=== PATIENT | male | born 1985 | race Caucasian/White ===

== ENCOUNTER 2016-10-20 09:31 | Emergency (ER) | payer OTHER ==
[2016-10-20 09:37] VITALS: BP 134/84
--- NOTE | 2016-10-20 09:57 | UC ---
Throat Pain/Nasal Manjit HPI - HPI Summary HPI Summary: ONSET OF ST AND PAIN WITH SWALLOWING YESTERDAY. HAS CHILLS AND BODY ACHES AND MILD COUGH. HAS H/O CF. - History of Current Complaint Chief Complaint: UCGeneralIllness Stated Complaint: THROAT PAIN Time Seen by Provider: 10/20/16 09:45 Hx Obtained From: Patient Onset/Duration: Gradual Onset, Lasting Hours, Still Present Severity: Moderate Pain Intensity: 8 Pain Scale Used: 0-10 Numeric Cough: Nonproductive Associated Signs & Symptoms: Positive: Nasal Discharge. Negative: Wheezing, Fever, Vomiting, Rash - Allergies/Home Medications Allergies/Adverse Reactions: Allergies Allergy/AdvReac Type Severity Reaction Status Date / Time Cefaclor [From [facility]] Allergy Intermediate Rash Verified 10/20/16 09:37 PUMPKIN SEEDS Allergy Severe Hives Uncoded 10/20/16 09:37 Home Medications: Home Medications Multiple Vitamins W/ Minerals [Multivitamin] 1 tab PO DAILY 10/20/16 [History Confirmed 10/20/16] Orkambi 1 tab PO BID 10/20/16 [History Confirmed 10/20/16] Pancrelipase (Lipase-Protease- [Creon 6000 Unit] 6 cap PO SEE INSTRUCTIONS 10/20 [History Confirmed 10/20/16] PMH/Surg Hx/FS Hx/Imm Hx Other Respiratory History: CYSTIC FIBROSIS - Surgical History Surgical History: None - Family History Known Family History: Positive: Hypertension - Social History Alcohol Use: None Substance Use Type: None Smoking Status (MU): Never Smoked Tobacco Review of Systems Constitutional: Chills ENT: Sore Throat, Nasal Discharge Respiratory: Cough Cardiovascular: Negative Gastrointestinal: Negative Musculoskeletal: Myalgia All Other Systems Reviewed And Are Negative: Yes Physical Exam Triage Information Reviewed: Yes Appearance: Well-Appearing, No Pain Distress, Well-Nourished Vital Signs: Initial Vital Signs Temp 98.7 F 10/20/16 09:32 Pulse 71 10/20/16 09:32 Resp 14 10/20/16 09:32 BP 134/84 10/20/16 09:32 Pulse Ox 100 10/20/16 09:32 Vital Signs Reviewed: Yes Eyes: Positive: Conjunctiva Clear ENT: Positive: Hearing grossly normal, Pharynx normal, TMs normal Neck: Positive: Supple, Nontender, No Lymphadenopathy Respiratory Exam: Normal Cardiovascular Exam: Normal Abdomen Description: Positive: Soft Musculoskeletal: Positive: No Edema Neurological: Positive: Alert Psychological: Positive: Age Appropriate Behavior Skin: Negative: rashes Throat Pain/Nasal Course/Dx - Differential Dx/Diagnosis Provider Diagnoses: ACUTE PHARYNGITIS Discharge - Discharge Plan Condition: Stable Disposition: HOME Prescriptions: Amoxicillin PO (*) [Amoxicillin 500 MG CAP*] 1,000 mg PO Q12H #40 cap Patient Education Materials: Pharyngitis (ED) Forms: *Work Release Referrals: Daya GALDAMEZ,Heath Melton [Primary Care Provider] - If Needed Additional Instructions: GIVEN YOUR CF AND RELATIVE DECREASED ABILITY TO FIGHT INFECTION WILL COVER WITH ANTIBIOTICS. TAKE FOR THE FULL 10 DAYS. FOLLOW-UP WITH YOUR PCP IF YOU ARE NOT IMPROVING EXPECTED.
== END 2016-10-20 10:09 | disposition home or self-care (01) ==
LOC: UCEAST 09:31
DX: J02.9 Acute pharyngitis, unspecified (principal); E84.9 Cystic fibrosis, unspecified
CPT/HCPCS: 99212; G0463

== ENCOUNTER 2016-10-27 11:31 | Emergency (ER) | payer OTHER ==
[2016-10-27 11:49] VITALS: BP 135/89
[2016-10-27] MEDS ORDERED: predniSONE TAB* 20 MG PO ONE (12:13)
[2016-10-27] MEDS ORDERED: Albuterol 2.5 MG/3 ML NEB.SOL* (0.083%) INH ONE (12:14)
--- NOTE | 2016-10-27 12:21 | UC ---
Respiratory Complaint HPI - HPI Summary HPI Summary: 31 y/o male PMHX of cistic fibrosis presents to the urgent care c/o SOB, persistent cough for the past week. Pt reports he was seen here at the urgent care on 10/20/2016 and was Rx Amoxicillin Po. He has been taking ABX. However this morning he was coughing persistently and has a hard time breathing and almost passed out at work. Pt states his symptoms has resolved now. 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 His cough has been productive w/ green sputum. Pt denies fever,chest pain or SOB. now, fever, N/V/D. - History of Current Complaint Chief Complaint: UCRespiratory Stated Complaint: COUGH SOB Time Seen by Provider: 10/27/16 12:02 Hx Obtained From: Patient Onset/Duration: Gradual Onset, Lasting Days, Still Present Severity Initially: Mild Severity Currently: Moderate Pain Intensity: 0 Pain Scale Used: 0-10 Numeric Character: Cough: Nonproductive - green phlegm Aggravating Factors: Exertion, Deep Breaths Associated Signs And Symptoms: Positive: Dyspnea, Pleuritic Chest Pain, Nasal Congestion, Sinus Discomfort. Negative: Fever Related History: Seasonal Allergies - Risk Factors Pulmonary Embolism Risk Factors: Negative Cardiac Risk Factors: Negative Pseudomonas Risk Factors: Negative Tuberculosis Risk Factors: Negative - Allergies/Home Medications Allergies/Adverse Reactions: Allergies Allergy/AdvReac Type Severity Reaction Status Date / Time Cefaclor [From [facility]] Allergy Intermediate Rash Verified 10/27/16 11:49 PUMPKIN SEEDS Allergy Severe Hives Uncoded 10/27/16 11:49 PMH/Surg Hx/FS Hx/Imm Hx Previously Healthy: Yes Other Respiratory History: Cistic fibrosis - Surgical History Surgical History: None - Family History Known Family History: Positive: Hypertension - Social History Occupation: Employed Full-time Lives: With Family Alcohol Use: None Substance Use Type: None Smoking Status (MU): Never Smoked Tobacco Review of Systems Constitutional: Negative Skin: Negative Eyes: Negative ENT: Sore Throat, Nasal Discharge, Sinus Congestion Respiratory: Cough - productive Cardiovascular: Negative Gastrointestinal: Negative Genitourinary: Negative Motor: Negative Neurovascular: Negative Musculoskeletal: Negative Neurological: Negative Psychological: Negative All Other Systems Reviewed And Are Negative: Yes Physical Exam Triage Information Reviewed: Yes Appearance: Well-Appearing, No Pain Distress, Well-Nourished Vital Signs: Initial Vital Signs Temp 97.9 F 10/27/16 11:45 Pulse 66 10/27/16 11:45 Resp 16 10/27/16 11:45 BP 135/89 10/27/16 11:45 Pulse Ox 100 10/27/16 11:45 Vital Signs Reviewed: Yes Eye Exam: Normal Eyes: Positive: Conjunctiva Clear - PERRLA, EOMI, fundi grossly normal ENT Exam: Normal ENT: Positive: Normal ENT inspection, Hearing grossly normal, Pharynx normal, TMs normal Dental Exam: Normal Neck exam: Normal Neck: Positive: Supple, Nontender, No Lymphadenopathy Respiratory Exam: Normal Respiratory: Positive: Chest non-tender, Lungs clear, Normal breath sounds - Positive wheezing on the anterior right lung, Wheezing Cardiovascular Exam: Normal Cardiovascular: Positive: RRR, No Murmur, Pulses Normal, Brisk Capillary Refill Abdominal Exam: Normal Abdomen Description: Positive: Nontender, No Organomegaly, Soft. Negative: CVA Tenderness (R), CVA Tenderness (L) Bowel Sounds: Positive: Present Musculoskeletal Exam: Normal Musculoskeletal: Positive: Strength Intact, ROM Intact, No Edema Neurological Exam: Normal Psychological Exam: Normal Skin Exam: Normal UC Diagnostic Evaluation - Laboratory O2 Sat by Pulse Oximetry: 100 Respiratory Course/Dx - Course Course Of Treatment: 31 y/o male PMHX of cistic fibrosis presents to the urgent care c/o SOB, persistent cough for the past week. Pt reports he was seen here at the urgent care on 10/20/2016 and was Rx Amoxicillin Po. He has been taking ABX. However this morning he was coughing persistently and has a hard time breathing and almost passed out at work. Pt states his symptoms has resolved now. 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 His cough has been productive w/ green sputum. Pt denies fever,chest pain or SOB. now, fever, N/V/ D. Hx obtained. PE abnormal findings:Respiratory: Positive: Chest non-tender, Lungs clear, Normal breath sounds - Positive wheezing on the anterior right lung. Pt O2Sat: 100. Pt given albuterol nebulizer treatment and Prednisone 60mgPO at the clinic. Pt felt better after treatment. Pt Rx prednisone taper dose and advised to continue w/ nebulizing treatment at home to alleviate symptoms of Wheezing and SOB and to continue w/ Amoxicillin PO full treatment. Advised to f/u with his Pulmonology appt tomorrow for furhter evaluation and treatment on his Cistic Fibrosis. Pt understood and agreed and left the clinic ambulating. - Differential Dx/Diagnosis Differential Diagnosis/HQI/PQRI: Asthma, Bronchitis, Exacerbation Of COPD, Laryngitis, Lower Resp Infection, Sinusitis, Other - Cistic fibrosis Provider Diagnoses: 1- Acute bronchitis Discharge - Discharge Plan Condition: Stable Disposition: HOME Prescriptions: Albuterol 2.5MG/3ML (0.083%)* [Ventolin 2.5 MG/3 ML NEB.CONSTANZA*] 2.5 mg INH Q4H #1 isabelle predniSONE TAB* [Deltasone TAB*] 20 mg PO DAILY #8 tab Patient Education Materials: Upper Respiratory Infection (ED) Referrals: Daya GALDAMEZ,Heath Melton [Primary Care Provider] - 1 Day Additional Instructions: 1- Please continue taking Amoxicillin, and take the predispose tomorrow since you were given 1st dose today. Continue the albuterol nebulizer treatments q4- 6hrs prn. F/u with your Motor Vehicle Technician for further evaluation and treatment. Increase fluid intake and rest.
== END 2016-10-27 13:01 | disposition home or self-care (01) ==
LOC: UCEAST 11:31
DX: J20.9 Acute bronchitis, unspecified (principal); R09.81 Nasal congestion; E84.9 Cystic fibrosis, unspecified
CPT/HCPCS: 99212; G0463; J7512

== ENCOUNTER 2017-04-23 17:25 | Emergency (ER) | payer OTHER ==
[2017-04-23 17:34] VITALS: BP 140/97
--- NOTE | 2017-04-23 18:01 | UC ---
FLU HPI - HPI Summary HPI Summary: 32 y/o male PMHX of cystic fibrosis presents to the urgent care c/o fever, nausea, body aches since yesterday. Pt reports this morning he woke up with periumbilical pressure and pain. He has decrease appetite and nausea. he had a soft BM this morning. He took 2 Tylenols around 1700 for fever. Pain is pressure like 4/10 radiating to the RLQ. Pt states he had similar symptoms 2 years ago and was Dx with appendicitis and Rx ABX and symptoms resolved. Pt denies SOB, chest pain, V/D or urinary symptoms or lower back pain, constipation , blood in the stool. - History of Current Complaint Chief Complaint: UCGeneralIllness Stated Complaint: FEVER, AND NAUSEA Time Seen by Provider: 04/23/17 17:49 Hx Obtained From: Patient Onset/Duration: Gradual Onset, Lasting Days - 1 day, Still Present, Worse Since - today Severity Currently: Moderate Severity Initially: Mild Pain Intensity: 4 Pain Scale Used: 0-10 Numeric Associated Signs & Symptoms: Positive: Fever, Myalgia - Risk Factors Influenza Risk Factors: Negative - Allergy/Home Medications Allergies/Adverse Reactions: Allergies Allergy/AdvReac Type Severity Reaction Status Date / Time Cefaclor [From [facility]] Allergy Intermediate Rash Verified 04/23/17 17:33 PUMPKIN SEEDS Allergy Severe Hives Uncoded 04/23/17 17:33 Home Medications: Home Medications Albuterol 2.5MG/3ML (0.083%)* [Ventolin 2.5 MG/3 ML NEB.CONSTANZA*] 2.5 mg INH Q4H PRN 04/23/17 [History Confirmed 04/23/17] Cholecalciferol [Vitamin D] 1,000 unit PO DAILY 04/23/17 [History Confirmed ] PMH/Surg Hx/FS Hx/Imm Hx Previously Healthy: Yes Other GI/ History: Cystic Fibrosis - Surgical History Surgical History: None - Family History Known Family History: Positive: Hypertension - Social History Occupation: Employed Full-time Lives: With Family Alcohol Use: None Substance Use Type: None Smoking Status (MU): Never Smoked Tobacco Review of Systems Constitutional: Fever, Chills Skin: Negative Eyes: Negative ENT: Negative, Nasal Discharge Respiratory: Negative Cardiovascular: Negative Gastrointestinal: Abdominal Pain - periumbilical area, RLQ pain and pressure, Nausea Genitourinary: Negative Motor: Negative Neurovascular: Negative Musculoskeletal: Negative Neurological: Negative Psychological: Negative Is Patient Immunocompromised?: No All Other Systems Reviewed And Are Negative: Yes Physical Exam Triage Information Reviewed: Yes Vital Signs: Initial Vital Signs Temp 100.1 F 04/23/17 17:30 Pulse 104 04/23/17 17:30 Resp 16 04/23/17 17:30 BP 140/97 04/23/17 17:30 Pulse Ox 100 04/23/17 17:30 - Additional Comments VITAL SIGNS: Reviewed. GENERAL: Patient is a well developed and nourished male who is lying comfortable in the examining table. Patient is not in any acute respiratory distress. HEAD AND FACE: Normocephalic and atraumatic. EYES: PERRLA, EOMI x 2, No injected conjunctiva. EARS: Hearing grossly intact. Ear canals and tympanic membranes are WNL. MOUTH: Oropharynx within normal limits. NECK: Supple, trachea is midline, no adenopathy, no JVD. CHEST: Symmetric, no tenderness at palpation LUNGS: Clear to auscultation bilaterally. No wheezing or crackles. CVS: RRR,, S1 and S2 present, no murmurs or gallops appreciated. ABDOMEN: Abd: Flat with no distention. No surface trauma, scars, incisions. normal bowel sounds present in all four quadrants. Point tenderness to palpation around the pperiumbilical area and RLQ, No , guarding, or rigidity to palpation. No masses palpated, no pulsation in epigastric area. No organomegaly. Negative [place] signs. No tenderness over McBurneys point. Good femoral pulses bilaterally. No hernia noted. No CVAT bilaterally EXTREMITIES: FROM in all major joints, no edema, no cyanosis or clubbing. NEURO: Alert and oriented x 3. No acute neurological deficits. Speech is normal. SKIN: Dry and warm Flu Course/Dx - Course Course Of Treatment: 32 y/o male PMHX of cystic fibrosis presents to the urgent care c/o fever, nausea, body aches since yesterday. Pt reports this morning he woke up with periumbilical pressure and pain. He has decrease appetite and nausea. he had a soft BM this morning. He took 2 Tylenols around 1700 for fever.. Pain is pressure like 4/10 radiating to the RLQ. Pt states he had similar symptoms 2 years ago and was Dx with appendicitis and Rx ABX and symptoms resolved. Pt denies SOB, chest pain, V/D or urinary symptoms or lower back pain, constipation, or blood in the stool.. Hx obtained. Pt is febrile and tachychardic with RLQ abdomen with tenderness on palpation on examination. Influenza A&B ordered : result: negative. I counsulted DR Rico on Pt's symptoms. She recommended Pt should go to the ER for further management and treatment. I advised the PT to go to the ER by ambulance and he stated he will go by Private car. Pt advised the risk of not going to the ER. I spoke to DR Berrios in the [facility] ER and DR Berrios agreed to accept PT. Pt left the clinic hemodynamycally stable, A&OX3 - Differential Dx/Diagnosis Differential Diagnosis/HQI/PQRI: Bronchitis, Influenza, Upper Respiratory Infection, Other - appendicitis, renal colic, bowel obstruction, constipation, colitis Provider Diagnoses: 1- Acute RLQ abdominal pain. 2-fever. 3-Elevated BP w/o Hx of HTN Discharge - Discharge Plan Condition: Stable Disposition: OTHER Discharge Disposition Comment: Pt highly recommended to go to [facility] ER for further treatment Patient Education Materials: Fever in Adults (ED), Acute Abdominal Pain (ED) Referrals: Daya GALDAMEZ,Heath Melton [Primary Care Provider] - Additional Instructions: I think you need a higher level or care for your presenting symptoms. I highly recommend you to go to the ER for further evaluation and treatment. The risks of not going can be , sepsis, appendicitis, perforation etc. I spoke to the ER attending Dr Berrios. . They are expecting you.
== END 2017-04-23 18:38 ==
LOC: UCEAST 17:25
DX: R10.31 Right lower quadrant pain (principal); R50.9 Fever, unspecified; R03.0 Elevated blood-pressure reading, without diagnosis of hypertension; E84.9 Cystic fibrosis, unspecified
CPT/HCPCS: 87502; 99212; G0463

== ENCOUNTER 2018-05-11 07:34 | Emergency (ER) | payer OTHER ==
[2018-05-11 07:46] VITALS: BP 140/84
[2018-05-11 08:04] LABS: Influenza A Molecular POSITIVE (Negative)
--- NOTE | 2018-05-11 08:22 | UC ---
FLU HPI - HPI Summary HPI Summary: 2 days of cough, congestion, chest heaviness, body aches, headache, nausea. Has subjective fever and chills. He got a flu shot last week. Has a history of cystic fibrosis and reports he has been wheezing. - History of Current Complaint Chief Complaint: UCRespiratory Stated Complaint: FLU LIKE SYM Time Seen by Provider: 05/11/18 07:46 Hx Obtained From: Patient Onset/Duration: Gradual Onset, Lasting Days, Still Present Severity Currently: Moderate Severity Initially: Moderate Pain Intensity: 7 Pain Scale Used: 0-10 Numeric Associated Signs & Symptoms: Positive: Fever, Myalgia, Cough, Nasal Congestion, Headache - Allergy/Home Medications Allergies/Adverse Reactions: Allergies Allergy/AdvReac Type Severity Reaction Status Date / Time cefaclor [From [facility]] Allergy Rash Verified 05/11/18 07:46 PUMPKIN SEEDS Allergy Severe Hives Uncoded 05/11/18 07:46 Home Medications: Home Medications Azithromycin 250 mg PO 05/11/18 [History] Ibuprofen 400 mg PO 05/11/18 [History] PMH/Surg Hx/FS Hx/Imm Hx Other Respiratory History: CYSTIC FIBROSIS - Surgical History Surgical History: None - Family History Known Family History: Positive: Hypertension - Social History Alcohol Use: None Substance Use Type: None Smoking Status (MU): Never Smoked Tobacco Review of Systems All Other Systems Reviewed And Are Negative: Yes Constitutional: Positive: Fever, Chills, Fatigue ENT: Positive: Nasal Discharge Respiratory: Positive: Shortness Of Breath, Cough, Other - WHEEZE Cardiovascular: Positive: Negative Gastrointestinal: Positive: Nausea Musculoskeletal: Positive: Arthralgia, Myalgia Neurological: Positive: Headache Physical Exam Triage Information Reviewed: Yes Appearance: No Pain Distress, Well-Nourished, Ill-Appearing - MILD Vital Signs: Initial Vital Signs Temp 99.5 F 05/11/18 07:43 Pulse 107 05/11/18 07:43 Resp 18 05/11/18 07:43 BP 140/84 05/11/18 07:43 Pulse Ox 97 05/11/18 07:43 Laboratory Tests 05/11/18 08:00 Influenza A (Rapid) Positive A Vital Signs Reviewed: Yes Eyes: Positive: Conjunctiva Clear ENT: Positive: Hearing grossly normal, Pharynx normal, TMs normal Neck: Positive: Supple, Nontender, No Lymphadenopathy Respiratory Exam: Normal Cardiovascular: Positive: Tachycardia Abdomen Description: Positive: Soft Musculoskeletal: Positive: No Edema Neurological: Positive: Alert Psychological: Positive: Age Appropriate Behavior Skin: Negative: Rashes Flu Course/Dx - Course Course Of Treatment: PATIENT WITH POSITIVE INFLUENZA A. TAMIFLU TWICE DAILY FOR 5 DAYS. OTC MEDS NEEDED FOR SYMPTOM RELIEF. PATIENT HAS A HISTORY OF CYSTIC FIBROSIS AND TAKES AZITHROMYCIN 250 MG DAILY. HE WILL CALL HIS CF TEAM IN [place] TO DISCUSS IF ANY FURTHER MEDICATIONS ARE REQUIRED SUCH ANTIBIOTIC PROPHYLAXIS. - Differential Dx/Diagnosis Provider Diagnosis: Influenza A Discharge - Sign-Out/Discharge Documenting (check all that apply): Patient Departure All imaging exams completed and their final reports reviewed: No Studies - Discharge Plan Condition: Stable Disposition: HOME Prescriptions: Oseltamivir CAP* [Tamiflu CAP*] 75 mg PO BID #10 cap Patient Education Materials: Influenza (ED) Forms: *Work Release Referrals: Daya GALDAMEZ,Heath Melton [Medical Doctor] - 1 Week Additional Instructions: SWAB POSITIVE FOR INFLUENZA A. TAMIFLU TWICE DAILY FOR 5 DAYS. OTC MEDS NEEDED FOR FEVER, BODY ACHES. STAY WELL HYDRATED AND RESTED. SEEK FOLLOW-UP IF YOU ARE NOT IMPROVING EXPECTED. USE OTC AFRIN FOR NASAL CONGESTION. 2 SPRAYS IN EACH NOSTRIL TWICE DAILY NEEDED. DO NOT USE FOR MORE THAN 3-4 DAYS IN A ROW TO PREVENT DEVELOPING REBOUND CONGESTION. BE [facility]RE [facility] TO ENSURE THERE ARE NO FURTHER STEPS YOU NEED TO TAKE TO PROTECT YOUR LUNGS. - Billing Disposition and Condition Condition: STABLE Disposition: Home
== END 2018-05-11 08:41 | disposition home or self-care (01) ==
LOC: UCEAST 07:34
DX: J10.1 Influenza due to other identified influenza virus with other respiratory manifestations (principal); Z88.1 Allergy status to other antibiotic agents; Z91.018 Allergy to other foods
CPT/HCPCS: 99212; G0463

== ENCOUNTER 2018-08-26 11:50 | Emergency (ER) | payer OTHER ==
[2018-08-26 11:59] VITALS: BP 129/85
--- NOTE | 2018-08-26 12:16 | UC ---
Upper Extremity HPI - HPI Summary HPI Summary: 33 year old male with no PMH no medications, fmh non-contributory presents with small mass on right wrist. Unknown amount of time present, began hurting today , no prior occurrences. He skateboards and snowboards and has a history of multiple wrist injuries in the past, but none presently, no injuries or falls recently. no bruising no other sytmpoms. - History of Current Complaint Chief Complaint: UCUpperExtremity Stated Complaint: WRIST INJURY Time Seen by Provider: 08/26/18 11:58 Hx Obtained From: Patient ?: No Onset/Duration: Sudden Onset, Lasting Days Severity Initially: Moderate Severity Currently: Moderate Pain Intensity: 7 Pain Scale Used: 0-10 Numeric Location Of Pain: Is Discrete @ - mass on inner right wrist Character: Sharp Aggravating Factor(s): Movement, Other - touching Alleviating Factor(s): Nothing Associated Signs And Symptoms: Positive: Swelling - Allergies/Home Medications Allergies/Adverse Reactions: Allergies Allergy/AdvReac Type Severity Reaction Status Date / Time cefaclor [From [facility]] Allergy Rash Verified 08/26/18 11:58 PUMPKIN SEEDS Allergy Severe Hives Uncoded 08/26/18 11:58 PMH/Surg Hx/FS Hx/Imm Hx Previously Healthy: Yes - Surgical History Surgical History: None - Family History Known Family History: Positive: Hypertension - Social History Alcohol Use: None Substance Use Type: None Smoking Status (MU): Never Smoked Tobacco Review of Systems All Other Systems Reviewed And Are Negative: Yes Constitutional: Positive: Negative Musculoskeletal: Positive: Edema Is Patient Immunocompromised?: No Physical Exam Triage Information Reviewed: Yes Appearance: Well-Appearing, No Pain Distress, Well-Nourished Vital Signs: Initial Vital Signs Temp 98.5 F 08/26/18 11:55 Pulse 87 08/26/18 11:55 Resp 18 08/26/18 11:55 BP 129/85 08/26/18 11:55 Pulse Ox 99 08/26/18 11:55 Vital Signs Reviewed: Yes Eyes: Positive: Conjunctiva Clear ENT: Positive: Hearing grossly normal Musculoskeletal: Positive: Strength Intact, ROM Intact, No Edema, Other: - small mobile circular mass, ~ 3mm on inner right wrist, radial side, TTP, fluctuant, consistent with ganglion cyst Upper Extremity Course/Dx - Course Course Of Treatment: - Follow up with orthopedics if continues to be painful/ enlarges - LIZET wrap to prevent movement to decrease irritation - Ice as needed for pain - Differential Dx/Diagnosis Provider Diagnosis: Ganglion cyst of volar aspect of right wrist Discharge - Sign-Out/Discharge Documenting (check all that apply): Patient Departure All imaging exams completed and their final reports reviewed: No Studies - Discharge Plan Condition: Good Disposition: HOME Patient Education Materials: Ganglion Cysts (ED) Referrals: Meek Neal MD [Medical Doctor] - (Follow up is cyst continues to be painful or enlarges. Hand specialists are Dr. Rangel or Dr. neal ) No Primary Care Phys,NOPCP [Primary Care Provider] - Additional Instructions: - LIZET wrap to prevent movement to decrease agitation to area. - Ice as needed to help with pain - Follow up with orthopedics if continues to be painful. - Billing Disposition and Condition Condition: GOOD Disposition: Home
== END 2018-08-26 12:15 | disposition home or self-care (01) ==
LOC: UCEAST 11:50
DX: M67.431 Ganglion, right wrist (principal)
CPT/HCPCS: 99211; G0463

== ENCOUNTER 2018-10-19 12:58 | Emergency (ER) | payer OTHER ==
[2018-10-19 13:21] VITALS: BP 143/89
--- NOTE | 2018-10-19 14:12 | UC ---
Head Injury HPI - HPI Summary HPI Summary: 33-year-old male comes in with a chief complaint of a head injury. 2 hours ago he was on a stand up riding mower and actually struck his forehead on a branch of a tree. Immediately had head pain felt nauseous and has some confusion. Also has neck pain. No weakness or numbness. The headache and the nausea are both decreasing. Still feels mildly confused. Has not taken any pain medications. Patient has had concussions in the past and the symptoms remind him of concussion. Not on any blood thinners. - History Of Current Complaint Chief Complaint: UCHeadInjury Stated Complaint: HEAD INJURY Time Seen by Provider: 10/19/18 13:25 Pain Intensity: 4 - Allergies/Home Medications Allergies/Adverse Reactions: Allergies Allergy/AdvReac Type Severity Reaction Status Date / Time cefaclor [From [facility]] Allergy Rash Verified 10/19/18 13:13 PUMPKIN SEEDS Allergy Severe Hives Uncoded 10/19/18 13:13 Home Medications: Home Medications Azithromycin TAB* [Zithromax TAB (Z-MIKE) 250 mg #6 tabs] 250 mg PO DAILY [History Confirmed 10/19/18] PMH/Surg Hx/FS Hx/Imm Hx Previously Healthy: Yes - HX CONCUSSIONS - Surgical History Surgical History: None - Family History Known Family History: Positive: Hypertension - Social History Alcohol Use: None Substance Use Type: None Smoking Status (MU): Never Smoked Tobacco Review of Systems All Other Systems Reviewed And Are Negative: Yes Constitutional: Positive: Negative Skin: Positive: Negative Eyes: Negative: Photophobia ENT: Positive: Negative Respiratory: Positive: Negative Cardiovascular: Positive: Negative Gastrointestinal: Positive: Nausea Motor: Positive: Negative Neurovascular: Positive: Negative Musculoskeletal: Positive: Other: - SEE HPI Neurological: Positive: Headache Psychological: Positive: Negative Is Patient Immunocompromised?: No Physical Exam Triage Information Reviewed: Yes Appearance: Well-Appearing, No Pain Distress, Well-Nourished Vital Signs: Initial Vital Signs Temp 98.4 F 10/19/18 13:15 Pulse 73 10/19/18 13:15 Resp 16 10/19/18 13:15 BP 143/89 10/19/18 13:15 Pulse Ox 99 10/19/18 13:15 Vital Signs Reviewed: Yes Eye Exam: Normal Eyes: Positive: Conjunctiva Clear, Other: - PERRLA/EOMI, NO PHOTOPHOBIA ENT: Positive: TMs normal - NO HEMOTYMPANUM. Negative: Nasal congestion Neck: Positive: Supple, Other: - Tender to palpation in the midline throughout the whole neck. Respiratory: Positive: Chest non-tender, Lungs clear, Normal breath sounds, No respiratory distress Musculoskeletal: Positive: Strength Intact, ROM Intact Neurological: Positive: Alert, Muscle Tone Normal Psychological: Positive: Age Appropriate Behavior Skin Exam: Normal Head Injury Course/Dx - Course Course Of Treatment: Patient Name: CLARICE BEY Medical Record#: [id number] Ordering Physician: Harpreet Egan MD Acct.#: [id number] : 1985 Age: 33 Sex: M Location: [facility] Exam Date: 10/19/181331 ADM Status: REG ER Order Information: CT BRAIN WO Accession Number: [id number] CPT: 45828 INDICATION: Head injury. COMPARISON: There are no relevant prior studies available for comparison. TECHNIQUE: Contiguous axial sections of the brain were obtained from the skull base to the vertex without contrast. FINDINGS: There is no hemorrhagic focus, mass effect or midline shift. Grossly, the steiner- white matter differentiation is maintained. The ventricles are of conventional size and configuration. The basal cisterns are patent. There is no abnormal extra-axial collection. The imaged globes and orbits are symmetric. There is moderate mucosal thickening in the right frontal sinus and right anterior ethmoid air cells. IMPRESSION: 1. No acute intracranial abnormality. 2. Moderate mucosal thickening in the right frontal sinus and right anterior ethmoid air cells. <Electronically signed by Greg Contreras MD in OV> 10/19/18 1408 Patient Name: CLARICE BEY Medical Record#: [id number] Ordering Physician: Harpreet Egan MD Acct.#: [id number] : 1985 Age: 33 Sex: M Location: [facility] Exam Date: 10/19/18 133 ADM Status: REG ER Order Information: CT SPINE CERVICAL W/O Accession Number: [id number] CPT: 70499 INDICATION: Pain status post trauma. COMPARISON: Comparison is made with a prior x-ray study of the cervical spine from July 24, 2012. TECHNIQUE: Contiguous axial sections were obtained from the skull base through the T2 vertebra. Images were reconstructed in the sagittal and coronal planes. FINDINGS: VERTEBRA: There is straightening of the cervical spine with loss of the normal cervical lordosis. No prevertebral soft tissue swelling or fracture is seen. C2-C3: No significant spinal canal or neural foraminal narrowing is seen. C3-C4: No significant spinal canal or neural foraminal narrowing is seen. C4-C5: No significant spinal canal or neural foraminal narrowing is seen. C5-C6: No significant spinal canal or neural foraminal narrowing is seen. C6-C7: No significant spinal canal or neural foraminal narrowing is seen. LUNG APICES: The lung apices appear clear. IMPRESSION: STRAIGHTENING OF THE CERVICAL SPINE, NO EVIDENCE FOR FRACTURE OR SUBLUXATION. <Electronically signed by Андрей Hartmann MD in OV> 10/19/[address] reports with the patient. At the end of his visit here in clinic patient reports he feels completely back to normal without a headache or any kind of confusion or difficulty with vision or nausea. Because his back to his baseline the plan will be to return to work tomorrow as long as he remains asymptomatic. Follow-up with occupational medicine if not completely improved. Get reevaluated if worse or any questions or concerns. - Differential Dx/Diagnosis Provider Diagnosis: Concussion, Head injury, Cervical strain Discharge - Sign-Out/Discharge Documenting (check all that apply): Patient Departure All imaging exams completed and their final reports reviewed: Yes - Discharge Plan Condition: Stable Disposition: HOME Patient Education Materials: Concussion (ED), Head Injury (ED), Acute Neck Pain (ED) Referrals: [facility] [Provider Group] Russell Paul MD [Medical Doctor] - Additional Instructions: FOLLOW UP WITH OCCUPATIONAL MEDICINE OR SPORTS MEDICINE IF NOT COMPLETELY IMPROVED. GET RECHECKED SOONER IF YOUR CONDITION WORSENS; WEAKNESS, NUMBNESS, UNEXPLAINED VOMITING, YOU FEEL ILL, PAIN OR ANY QUESTIONS OR CONCERNS. - Billing Disposition and Condition Condition: STABLE Disposition: Home
== END 2018-10-19 14:29 | disposition home or self-care (01) ==
LOC: UCEAST 12:58
DX: S06.0X0A Concussion without loss of consciousness, initial encounter (principal); S16.1XXA Strain of muscle, fascia and tendon at neck level, initial encounter; W22.8XXA Striking against or struck by other objects, initial encounter; Y93.H9 Activity, other involving exterior property and land maintenance, building and construction; Y92.017 Garden or yard in single-family (private) house as the place of occurrence of the external cause; Y99.8 Other external cause status
CPT/HCPCS: 70450; 72125; 99211; G0463

== ENCOUNTER 2019-01-16 11:34 | Emergency (ER) | payer OTHER ==
[2019-01-16 12:11] VITALS: BP 126/89
--- NOTE | 2019-01-16 12:37 | UC ---
Respiratory Complaint HPI - HPI Summary HPI Summary: Patient is a 34yo male with cystic fibrosis presenting with nasal congestion, chest congestion, wheezing, SOB and productive cough x3 days. Denies sore throat , ear pain, sinus tenderness. Denies n/v/d and abdominal pain. Denies fever and chills. States he takes azithromycin chronically which does not usually help when he has these symptoms. Patient also notes using flonase and albuterol inhalers at home. Also notes breathing treatments at home when necessary but has not done one yet. - History of Current Complaint Chief Complaint: UCGeneralIllness Stated Complaint: RESP ISSUE Hx Obtained From: Patient Onset/Duration: Gradual Onset, Lasting Days Severity Currently: Moderate Pain Intensity: 5 - Allergies/Home Medications Allergies/Adverse Reactions: Allergies Allergy/AdvReac Type Severity Reaction Status Date / Time cefaclor [From [facility]] Allergy Rash Verified 01/16/19 12:11 PUMPKIN SEEDS Allergy Severe Hives Uncoded 01/16/19 12:11 Home Medications: Home Medications Azithromycin TAB* [Zithromax TAB (Z-MIKE) 250 mg #6 tabs] 250 mg PO DAILY [History Confirmed 01/16/19] Lumacaftor/Ivacaftor [Orkambi 100 mg-125 mg Tablet] 1 tab PO BID 01/16/19 [ History Confirmed 01/16/19] PMH/Surg Hx/FS Hx/Imm Hx Respiratory History: Other - cystic fibrosis - Surgical History Surgical History: None - Family History Known Family History: Positive: Hypertension Family History: Colon Cancer, brast cancer, - Social History Alcohol Use: None Substance Use Type: None Smoking Status (MU): Never Smoked Tobacco Review of Systems All Other Systems Reviewed And Are Negative: Yes Constitutional: Positive: Negative. Negative: Fever, Chills Skin: Positive: Negative ENT: Positive: Sinus Congestion. Negative: Sore Throat, Ear Ache, Nasal Discharge, Sinus Pain/Tenderness Respiratory: Positive: Shortness Of Breath, Cough, Other - wheezing Cardiovascular: Positive: Negative. Negative: Palpitations, Chest Pain Gastrointestinal: Positive: Negative. Negative: Abdominal Pain, Vomiting, Nausea Musculoskeletal: Positive: Negative Neurological: Positive: Negative Physical Exam Triage Information Reviewed: Yes Appearance: Well-Appearing, No Pain Distress, Well-Nourished Vital Signs: Initial Vital Signs Temp 98.1 F 01/16/19 12:08 Pulse 68 01/16/19 12:08 Resp 15 01/16/19 12:08 BP 126/89 01/16/19 12:08 Pulse Ox 100 01/16/19 12:08 Vital Signs Reviewed: Yes Eyes: Positive: Conjunctiva Clear ENT: Positive: Hearing grossly normal, Pharyngeal erythema, Nasal congestion, TMs normal, Uvula midline. Negative: Nasal drainage, TM bulging, TM dull, TM red, Tonsillar swelling, Tonsillar exudate, Trismus, Muffled voice, Hoarse voice , Sinus tenderness Neck exam: Normal Neck: Positive: Supple, Nontender, No Lymphadenopathy Respiratory: Positive: Chest non-tender, No respiratory distress, No accessory muscle use, Wheezing - scattered wheezing noted throughout lung fernandez, Expiration Cardiovascular Exam: Normal Cardiovascular: Positive: RRR. Negative: Tachycardia Neurological: Positive: Alert Psychological: Positive: Age Appropriate Behavior Respiratory Course/Dx - Course Course Of Treatment: I am treating with Bactrim for infection prevention. Patient states this has worked well for him in the past. Also prescribed short course of prednisone which he states also provides significant relief from symptoms like this in the past. Patient declined breathing treatment here, stating he wanted to do it at home. I instructed him to continue with flonase, azithromycin, and inhaler at home. Directed him to go to ED if symptoms worsen. Patient voiced understanding and agreed to the treatment plan. - Differential Dx/Diagnosis Provider Diagnosis: Acute bronchitis with coexisting condition requiring prophylactic treatment Discharge ED - Sign-Out/Discharge Documenting (check all that apply): Patient Departure All imaging exams completed and their final reports reviewed: No Studies - Discharge Plan Condition: Stable Disposition: HOME Prescriptions: predniSONE TAB* [Deltasone 20 MG TAB*] 20 mg PO DAILY #7 tab Sulfamethox/Trimethoprim DS* [Bactrim DS 800/160 TAB*] 1 tab PO BID #14 tab Patient Education Materials: Prednisone (By mouth) Referrals: [facility] [Outside] - If Needed [facility] [Outside] - If Needed Additional Instructions: As discussed, take Bactrim as prescribed to treat possible infection. Take prednisone as prescribed to help reduce any inflammation in your lungs. You may continue your azithromycin, flonase, and albuterol inhaler at home. 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 You may also use one of the referrals listed below. Go to the emergency room if you experience worsening shortness of breath, fever , chills, nausea, or vomiting. - Billing Disposition and Condition Condition: STABLE Disposition: Home
== END 2019-01-16 12:50 | disposition home or self-care (01) ==
LOC: UCEAST 11:34
DX: J20.9 Acute bronchitis, unspecified (principal); E84.9 Cystic fibrosis, unspecified; R09.81 Nasal congestion; Z88.1 Allergy status to other antibiotic agents; Z91.018 Allergy to other foods
CPT/HCPCS: 99212; G0463

== ENCOUNTER 2019-05-17 13:44 | Emergency (ER) | payer OTHER ==
[2019-05-17 14:38] VITALS: BP 128/85
[2019-05-17 15:00] LABS: Influenza A Molecular POSITIVE (Negative)
--- NOTE | 2019-05-17 15:29 | UC ---
FLU HPI - HPI Summary HPI Summary: ONSET YESTERDAY OF FEVER, BODY ACHES, HEADACHE, NAUSEA/VOMITING, COUGH, CONGESTION. NO FLU SHOT THIS SEASON. HAS A HISTORY OF CYSTIC FIBROSIS. 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 - History of Current Complaint Chief Complaint: UCRespiratory Stated Complaint: FLU LIKE SYMPTOMS Time Seen by Provider: 05/17/19 14:51 Hx Obtained From: Patient Onset/Duration: Gradual Onset, Lasting Days - 1 DAY, Still Present Severity Currently: Moderate Severity Initially: Moderate Pain Intensity: 10 Pain Scale Used: 0-10 Numeric Associated Signs & Symptoms: Positive: Fever, Myalgia, Cough, Nasal Congestion, Headache - Allergy/Home Medications Allergies/Adverse Reactions: Allergies Allergy/AdvReac Type Severity Reaction Status Date / Time cefaclor [From [facility]] Allergy Rash Verified 05/17/19 14:38 PUMPKIN SEEDS Allergy Severe Hives Uncoded 05/17/19 14:38 Home Medications: Home Medications Albuterol HFA INHALER* [Ventolin HFA Inhaler*] 1 puff INH Q4HR PRN 01/05/12 [ History Confirmed 05/17/19] Dornase Alessandro [Pulmozyme] 1 neb INH BID PRN 01/05/12 [History Confirmed 05/17/19] Lipase/Protease/Amylase [Sherman Avelar 6,000 Units Capsule] 2 cap PO SEE INSTRUCTIONS 10/20/16 [History Confirmed 05/17/19] Multivit-Min/Ferrous Fumarate [Multivitamin Liquid] 2 tab PO DAILY 10/20/16 [ History Confirmed 05/17/19] Albuterol 2.5MG/3ML (0.083%)* [Ventolin 2.5 MG/3 ML NEB.CONSTANZA*] 2.5 mg INH Q4H PRN 04/23/17 [History Confirmed 05/17/19] Azithromycin TAB* [Zithromax TAB (Z-MIKE) 250 mg #6 tabs] 250 mg PO DAILY [History Confirmed 05/17/19] Diphenhydra/Phenyleph/Acetamin [Cold & Flu Relief Multi-Sym Lq] 1 dose PO ONCE PRN 05/17/19 [History Confirmed 05/17/19] Elexacaftor/Tezacaftor/Ivacaft [Trikafta 100/50/75 mg-150 mg] 1 tab PO QPM 05/17 [History Confirmed 05/17/19] Elexacaftor/Tezacaftor/Ivacaft [Trikafta 100/50/75 mg-150 mg] 2 tab PO QAM 05/17 [History Confirmed 05/17/19] Ondansetron ODT TAB* [Zofran Odt TAB*] 4 mg PO Q6H PRN #12 tab.odt 05/17/19 [Rx] Oseltamivir CAP* [Tamiflu CAP*] 75 mg PO BID #10 cap 05/17/19 [Rx] PMH/Surg Hx/FS Hx/Imm Hx - Additional Past Medical History Additional PMH: CYSTIC FIBROSIS - Surgical History Surgical History: None - Family History Known Family History: Positive: Hypertension Family History: Colon Cancer, brast cancer, - Social History Alcohol Use: None Substance Use Type: None Smoking Status (MU): Never Smoked Tobacco Review of Systems All Other Systems Reviewed And Are Negative: Yes Constitutional: Positive: Fever, Chills, Fatigue ENT: Positive: Nasal Discharge Respiratory: Positive: Cough Cardiovascular: Positive: Negative Gastrointestinal: Positive: Nausea Musculoskeletal: Positive: Myalgia Neurological/Mental Status: Positive: Headache Physical Exam Triage Information Reviewed: Yes Appearance: No Pain Distress, Well-Nourished, Ill-Appearing - FATIGUED Vital Signs: Initial Vital Signs Temp 100.5 F 05/17/19 14:34 Pulse 88 05/17/19 14:34 Resp 18 05/17/19 14:34 BP 128/85 05/17/19 14:34 Pulse Ox 99 05/17/19 14:34 Laboratory Tests 05/17/19 14:55 Influenza A (Rapid) Positive H Vital Signs Reviewed: Yes Eyes: Positive: Conjunctiva Clear ENT: Positive: Hearing grossly normal, Pharynx normal, TMs normal Neck: Positive: Supple, Nontender, No Lymphadenopathy Respiratory Exam: Normal Cardiovascular Exam: Normal Abdomen Description: Positive: Soft Musculoskeletal: Positive: No Edema Neurological: Positive: Alert Psychological: Positive: Age Appropriate Behavior Skin: Negative: Rashes Flu Course/Dx - Course Course Of Treatment: PATIENT WITH POSITIVE INFLUENZA A. TAMIFLU TWICE DAILY FOR 5 DAYS. ZOFRAN FOR NAUSEA. ADVISED TO USE SPARINGLY DUE TO POSSIBLE INTERACTION WITH AZITH. OTC MEDS NEEDED FOR SYMPTOM RELIEF. 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 - Differential Dx/Diagnosis Provider Diagnosis: Influenza A Discharge ED - Sign-Out/Discharge Documenting (check all that apply): Patient Departure All imaging exams completed and their final reports reviewed: No Studies - Discharge Plan Condition: Stable Disposition: HOME Prescriptions: Ondansetron ODT TAB* [Zofran Odt TAB*] 4 mg PO Q6H PRN #12 tab.odt PRN Reason: Nausea/Vomiting Oseltamivir CAP* [Tamiflu CAP*] 75 mg PO BID #10 cap Patient Education Materials: Influenza (ED) Forms: *Work Release Referrals: Daya GALDAMEZ,Heath Melton [Medical Doctor] - If Needed Additional Instructions: SWAB POSITIVE FOR INFLUENZA A. TAMIFLU TWICE DAILY FOR 5 DAYS. OTC MEDS NEEDED FOR FEVER, BODY ACHES. STAY WELL HYDRATED AND RESTED. SEEK FOLLOW-UP IF YOU ARE NOT IMPROVING EXPECTED. USE OTC AFRIN FOR NASAL CONGESTION. 2 SPRAYS IN EACH NOSTRIL TWICE DAILY NEEDED. DO NOT USE FOR MORE THAN 3-4 DAYS IN A ROW TO PREVENT DEVELOPING REBOUND CONGESTION. ZOFRAN FOR NAUSEA. USE THIS SPARINGLY IT CAN INTERACT WITH YOUR AZITHROMYCIN. BE SURE TO CONTACT YOUR CF TEAM IN [place] TODAY TO NOTIFY THEM OF YOUR DIAGNOSIS AND TO ADDRESS THE NEED FOR PROPHYLACTIC ANTIBIOTICS. I STRONGLY RECOMMEND YOU GET THE FLU SHOT NEXT SEASON. - Billing Disposition and Condition Condition: STABLE Disposition: Home
[2019-05-17] MEDS ORDERED: Ondansetron ODT TAB* 4 MG PO ONE (15:37)
== END 2019-05-17 15:55 | disposition home or self-care (01) ==
LOC: UCEAST 13:44
DX: J10.1 Influenza due to other identified influenza virus with other respiratory manifestations (principal); R51 Headache; Z88.1 Allergy status to other antibiotic agents; Z91.018 Allergy to other foods
CPT/HCPCS: 99212; A9270-GY; G0463

== ENCOUNTER 2019-05-31 23:18 | Emergency (ER) | payer OTHER ==
--- OUTSIDE RECORDS SUMMARY | 2019-05-31 23:26 | XMS REPORT | Summary of Care ---
:1985 Author Organization [facility] Address [address] [place] [address] Care Team Providers Name Role Phone Pcp, No Primary Care Provider Unavailable Encounter Details Date Type Department Care Team Description 05/29/2019 Hospital Encounter Diagnostic Radiology Cystic fibrosis of the lung [address] [id number] Allergies Active Allergy Reactions Severity Noted Date Comments Cefaclor Rash Low 05/04/2011 Nuts-In Food Hives High 10/03/2009 Throat swelling pumpkin seeds only documented as of this encounter (statuses as of 05/30/2019) Medications Medication Sig Dispensed Refills Start Date End Date Status Nebulizers Use as directed. 1 each 0 03/31/2016 Active (NEBULIZER Respironics COMPRESSOR) MISC [employer]ospire Elegance Compressor and accessories. CF IC10:E84.0, MAYTE=99 Misc. Devices Use as directed. Smartvest 1 each 0 04/03/2016 Active (DURABLE MEDICAL [employer] #[id number] EQUIPMENT SEE SIG) MISC polyethylene glycol Take 17 g by 255 g 5 05/02/2018 Active (GLYCOLAX) mouth daily as powderIndications: needed Cystic fibrosis with pulmonary manifestations tobramycin, PF, INHALE 1 VIAL VIA 280 mL 5 07/13/2018 Active (FLOR) 300 MG/5ML NEBULIZER BY nebulizer MOUTH TWICE solutionIndications: DAILY. USE ONLY Cystic fibrosis with WHEN SICK. DOES pulmonary NOT ALTERNATE manifestations EVERY MONTH. Pancrelipase Take 5 capsules 1050 capsule 03/14/2019 Active (Ypt-Erdk-Gpct) by mouth Three [address] UNIT times daily with Oral Capsule Delayed meals 5 capsules Release with snacks. 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 MVW Complete Take 2 capsules 60 capsule 5 03/14/2019 Active Formulation D5000 by mouth daily Oral CapsuleIndications: Cystic fibrosis with pulmonary manifestations Azithromycin 250 MG Take 1 tablet by 30 tablet 03/14/2019 Active Oral Tablet mouth daily (ZITHROMAX)Indicatio ns: Cystic fibrosis with pulmonary manifestations Montelukast Sodium Take 1 tablet by 30 tablet 03/14/2019 Active 10 MG Oral Tablet mouth nightly 0 (SINGULAIR)Indicatio ns: Allergic rhinitis, unspecified seasonality, unspecified trigger, Cystic fibrosis with pulmonary manifestations Fluticasone 2 sprays by Nasal 16 g 03/14/2019 Active Propionate 50 route Two Times MCG/ACT Nasal Daily SuspensionIndication s: Cystic fibrosis with pulmonary manifestations Dornase Alessandro 1 MG/ML Inhale 2.5 mg 75 mL 03/14/2019 Active Inhalation Solution into the lungs (PULMOZYME)Indicatio daily ns: Cystic fibrosis with pulmonary manifestations Albuterol Sulfate Inhale 1 Inhaler 1 each 03/14/2019 Active 108 (90 Base) into the lungs MCG/ACT Inhalation every 4 (four) Aerosol Powder hours as needed Breath Activated (PROAIR RESPICLICK)Indicatio ns: Cystic fibrosis with pulmonary manifestations Fluticasone Furoate Inhale 1 puff 30 each 03/14/2019 Active 200 MCG/ACT into the lungs Inhalation Aerosol daily Powder Breath ActivatedIndications : Cystic fibrosis with pulmonary manifestations elexacaftor-tezacaft Take 2 orange 84 tablet 03/14/2019 Active or-ivacaftor and tablets in the ivacaftor 100-50-75 morning. Take 1 & 150 MG PO per blue tablet in tablet the evening kitIndications: Cystic fibrosis with pulmonary manifestations Hbjlbnay-Lttqghy-Qlj Take 2 tablets by 84 each 03/14/2019 Active caf&Ivacaf 100-50-75 mouth every & 150 MG Oral Tablet morning AND 1 Therapy tablet every PackIndications: evening. Cystic fibrosis with pulmonary manifestations Hospital, Clinic, or Other Ordered Dose Route Frequency Start Date End Date Status Facility Administered Medication albuterol (PROVENTIL 2 puff IN Once 05/29/2019 06/02/2019 Active HFA;VENTOLIN HFA) inhaler 2 puff documented as of this encounter (statuses as of 05/30/2019) Active Problems Problem Noted Date Pancreatic insufficiency due to cystic fibrosis 03/31/2016 Cystic fibrosis with pulmonary manifestations 03/31/2016 Appendix disease 03/31/2016 Male infertility 11/21/2012 Chronic sinusitis Cystic fibrosis of the lung documented as of this encounter (statuses as of 05/30/2019) Resolved Problems Problem Noted Date Resolved Date Acute sinusitis 08/19/2011 11/21/2012 documented as of this encounter (statuses as of 05/30/2019) Immunizations Name Administration Dates Next Due Influenza Quad IM Pres Free (0.5 mL dose) 05/02/2018 Influenza Quad IM with Pres (0.5 mL dose) 12/31/2014 01/01/2016 Influenza Split 03/05/2014, 01/11/2012 Tdap 05/29/2019 documented as of this encounter Social History Tobacco Use Types Packs/Day Years Used Date Never Smoker Smokeless Tobacco: Never Used Alcohol Use Drinks/Week oz/Week Comments No Sex Assigned at Date Recorded Not on file Job Start Date Occupation Industry Not on file Not on file Not on file Travel History Travel Start Travel End No recent travel history available. documented as of this encounter Last Filed Vital Signs Not on filedocumented in this encounter Plan of Treatment Health Maintenance Due Date Last Done Comments MMR Vaccines (1 of 1 - 1986 Standard series) Varicella Vaccines (1 of 2 1986 - 2-dose childhood series) Pneumococcal Vaccine: 1991 Pediatrics (0 to 5 Years) and At-Risk Patients (6 to 64 Years) (1 of 1 - PPSV23) HIV Screening 1998 Influenza Vaccine 12/27/2018 05/02/2018, 12/31/2014, 03/05/2014, Additional history exists DTaP,Tdap,and Td Vaccines 06/26/2019 05/29/2019 (2 - Td) Pneumococcal Vaccine: 65+ 2050 Years (1 of 2 - PCV13) HIB Vaccines Aged Out No longer eligible based on patient's age to complete this topic Hepatitis A Vaccines Aged Out No longer eligible based on patient's age to complete this topic Hepatitis B Vaccines Aged Out No longer eligible based on patient's age to complete this topic IPV Vaccines Aged Out No longer eligible based on patient's age to complete this topic documented as of this encounter Procedures Procedure Name Priority Date/Time Associated Diagnosis Comments XR CHEST FRONTAL Routine 05/29/2019 4:51 PM Cystic fibrosis of Results for this AND LATERAL [id number] EST the lung procedure are in the results section. documented in this encounter Results XR Chest Frontal and Lateral (05/29/2019 4:51 PM EST) Specimen Narrative Performed At PROCEDURE INFORMATION: [facility] Exam: XR Chest, 2 Views Exam date and time: 05/29/2019 4:46 PM Age: 34 years old Clinical indication: Cystic fibrosis with pulmonary manifestations; Other: Post flu follow up TECHNIQUE: Imaging protocol: XR of the chest Views: 2 views. COMPARISON: CR XR CHEST FRONTAL AND LATERAL [id number] 03/31/2016 2:40 PM FINDINGS: Lungs: Unremarkable. No consolidation. Pleural space: Unremarkable. No pleural effusion. No pneumothorax. Heart/Mediastinum: Unremarkable. No cardiomegaly. Bones/joints: Unremarkable. IMPRESSION: No acute findings. No significant change. THIS DOCUMENT HAS BEEN ELECTRONICALLY SIGNED BY GABO TRONCOSO MD Procedure Note Interface, Received Via [employer] System - 05/29/2019 5:55 PM EST PROCEDURE INFORMATION: Exam: XR Chest, 2 Views Exam date and time: 05/29/2019 4:46 PM Age: 34 years old Clinical indication: Cystic fibrosis with pulmonary manifestations; Other: Post flu follow up TECHNIQUE: Imaging protocol: XR of the chest Views: 2 views. COMPARISON: CR XR CHEST FRONTAL AND LATERAL [id number] 03/31/2016 2:40 PM FINDINGS: Lungs: Unremarkable. No consolidation. Pleural space: Unremarkable. No pleural effusion. No pneumothorax. Heart/Mediastinum: Unremarkable. No cardiomegaly. Bones/joints: Unremarkable. IMPRESSION: No acute findings. No significant change. THIS DOCUMENT HAS BEEN ELECTRONICALLY SIGNED BY GABO TRONCOSO MD Performing Organization Address City/State/Zipcode Phone Number [facility] [address] [place] [address] documented in this encounter Visit Diagnoses Diagnosis Cystic fibrosis of the lung Cystic fibrosis with pulmonary manifestations documented in this encounter
--- OUTSIDE RECORDS SUMMARY | 2019-05-31 23:26 | XMS REPORT | Summary of Care ---
:1985 Author Organization [facility] Address [address] [place] [address] Care Team Providers Name Role Phone Pcp, No Primary Care Provider Unavailable Reason for Visit Reason Comments Cystic Fibrosis fup Encounter Details Date Type Department Care Team Description 05/29/[address] [facility] PEDIATRIC Heath Stapleton MD Cystic fibrosis of the lung (Primary Dx); PULMONARY AND CYSTIC [address] Need for Tdap vaccination [facility] at [address] [place] [address] [place] [address], Room [phone] [address] [place] [address] Allergies Active Allergy Reactions Severity Noted Date Comments Cefaclor Rash Low 05/04/2011 Nuts-In Food Hives High 10/03/2009 Throat swelling pumpkin seeds only documented as of this encounter (statuses as of 05/29/2019) Medications Medication Sig Dispensed Refills Start Date End Date Status Nebulizers Use as directed. 1 each 0 03/31/2016 Active (NEBULIZER Respironics COMPRESSOR) MISC Innospire Elegance Compressor and accessories. CF IC10:E84.0, MAYTE=99 Misc. Devices Use as directed. Smartvest 1 each 0 04/03/2016 Active (DURABLE MEDICAL [employer] #[id number] EQUIPMENT SEE SIG) MISC polyethylene glycol Take 17 g by 255 g 5 05/02/2018 Active (GLYCOLAX) mouth daily as powderIndications: needed Cystic fibrosis with pulmonary manifestations tobramycin, PF, INHALE 1 VIAL VIA 280 mL 07/13/2018 Active (FLOR) 300 MG/5ML NEBULIZER BY nebulizer MOUTH TWICE solutionIndications: DAILY. USE ONLY Cystic fibrosis with WHEN SICK. DOES pulmonary NOT ALTERNATE manifestations EVERY MONTH. Pancrelipase Take 5 capsules 1050 capsule 5 03/14/2019 Active (Lum-Gzhp-Qjbi) by mouth Three 12681-[address]333 UNIT times daily with Oral Capsule Delayed meals 5 capsules Release with snacks. 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 MVW Complete Take 2 capsules 60 capsule 03/14/2019 Active Formulation D5000 by mouth daily [...] evening kitIndications: Cystic fibrosis with pulmonary manifestations Cdanxmgn-Uddqkoq-Jke Take 2 tablets by 84 each 5 03/14/2019 Active caf&Ivacaf 100-50-75 mouth every & 150 MG Oral Tablet morning AND 1 Therapy tablet every PackIndications: evening. Cystic fibrosis with pulmonary manifestations Hospital, Clinic, or Other Ordered Dose Route Frequency Start Date End Date Status Facility Administered Medication albuterol (PROVENTIL 2 puff IN Once 05/29/2019 06/02/2019 Active HFA;VENTOLIN HFA) inhaler 2 puff documented as of this encounter (statuses as of 05/29/2019) Active Problems Problem Noted Date Pancreatic insufficiency due to cystic fibrosis 03/31/2016 Cystic fibrosis with pulmonary manifestations 03/31/2016 Appendix disease 03/31/2016 Male infertility 11/21/2012 Chronic sinusitis Cystic fibrosis of the lung documented as of this encounter (statuses as of 05/29/2019) Resolved Problems Problem Noted Date Resolved Date Acute sinusitis 08/19/2011 11/21/2012 documented as of this encounter (statuses as of 05/29/2019) Immunizations Name Administration Dates Next Due Influenza [...] of this encounter Last Filed Vital Signs Vital Sign Reading Time Taken Comments Blood Pressure - - Pulse 78 05/29/2019 4:32 PM EST Temperature 36.4 05/29/2019 4:32 PM C (97.5 EST F) Respiratory Rate 14 05/29/2019 4:32 PM EST Oxygen Saturation 98% 05/29/2019 4:32 PM EST Inhaled Oxygen Concentration - - Weight 91.6 kg (201 lb 15.1 oz) 05/29/2019 4:32 PM EST Height - - Body Mass Index 30.36 10/24/2018 4:01 PM EDT documented in this encounter Patient Instructions Patient InstructionsJennifer Whitman RN - 05/29/2019 4:30 PM ESTWe will call you with the results of your flu swab. We will call Tamiflu if it is positive. Received your TDAP today. See you back in 3 months, don't forget to get your liver blood work before you come documented in this encounter Progress Notes Jaylen Bennett MD - 05/29/2019 4:30 PM EST Reason For Visit: Follow up for Cystic Fibrosis History Of Present Illness: Jimmy Burrows is a 34 y.o. 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 He feels that he has the flu again. He had it 2 weeks ago and was treated with tamiflu with improvement. Today, he woke up with muscle aches and congestion. Repeat chest x-ray and viral panel was negative today. He did not have his influenza vaccine this season. He has been having increased upper airway congestion and myalgias. His congestion is the same as it was 2 weeks ago when he had the flu. He denied hemoptysis, weight loss, sick contacts or recent travel. His previous cultures have grown pseudomonas, MSSA, MAC and aspergillus. He uses albuterol, azithromycin, dornase, trikafta, flonase, pancrealipase. He is not using inhaled tobramycin or singulair. His last exacerbation was 10/2016 which was treated with cipro for 14 days. His last PFTs have been stable. Past Medical History: Diagnosis Date Abnormal x-ray peribronchial thickening Appendix disease 03/31/2016 Bronchiectasis Bronchitis recurrent Chronic sinusitis Cystic fibrosis of the lung Digital clubbing Elevated serum creatinine GERD (gastroesophageal reflux disease) Hemoptysis recurrent Malabsorption recurrent Pancreatic insufficiency Poor weight gain (0-17) Protime increased recurrent Pseudomonas infection chronic airway colonization Recurrent epistaxis Recurrent otitis media Recurrent pneumonia Recurrent sinusitis Staphylococcus infection chronic airway colonization Vitamin D deficiency Vitamin E deficiency Weight loss recurrent Wheezing recurrent No past surgical history on file. Allergies: Nuts-in food and Ceclor [cefaclor] Family History Problem Relation Age of Onset Cystic fibrosis Sister Social History Socioeconomic History Marital status: Single Spouse name: None Number of children: None Years of education: None Highest education level: None Occupational History None Social Needs Financial resource strain: None Food insecurity: Worry: None Inability: None Transportation needs: Medical: None Non-medical: None Tobacco Use Smoking status: Never Smoker Smokeless tobacco: Never Used Substance and Sexual Activity Alcohol use: No Drug use: No Sexual activity: None Lifestyle Physical activity: Days per week: None Minutes per session: None Stress: None Relationships Social connections: Talks on phone: None Gets together: None Attends restorationist service: None Active member of club or organization: None Attends meetings of clubs or organizations: None Relationship status: None Intimate partner violence: Fear of current or ex partner: None Emotionally abused: None Physically abused: None Forced sexual activity: None Other Topics Concern None Social History Narrative None Home Medications: Current Outpatient Medications: Albuterol Sulfate 108 (90 Base) MCG/ACT Inhalation Aerosol Powder Breath Activated (PROAIR RESPICLICK), Inhale 1 Inhaler into the lungs every 4 ( four) hours as needed, Disp: 1 each, Rfl: 5 Azithromycin 250 MG Oral Tablet (ZITHROMAX), Take 1 tablet by mouth daily, Disp: 30 tablet, Rfl: 5 Dornase Alessandro 1 MG/ML Inhalation Solution (PULMOZYME), Inhale 2.5 mg into the lungs daily, Disp: 75 mL, Rfl: 5 Xuklgfnl-Gzghhui-Advtmp&Ivacaf 100-50-75 & 150 MG Oral Tablet Therapy Pack, Take 2 tablets by mouth every morning AND 1 tablet every evening. , Disp: 84 each, Rfl: 5 ctaxjumcicg-ovorinkyvd-sgvytxgxj and ivacaftor 100-50-75 & 150 MG PO per tablet kit, Take 2 orange tablets in the morning. Take 1 blue tablet in the evening, Disp: 84 tablet, Rfl: 11 Fluticasone Furoate 200 MCG/ACT Inhalation Aerosol Powder Breath Activated, Inhale 1 puff into the lungs daily, Disp: 30 each, Rfl: 11 Fluticasone Propionate 50 MCG/ACT Nasal Suspension, 2 sprays by Nasal route Two Times Daily,Disp: 16 g, Rfl: 5 Misc. Devices (DURABLE MEDICAL EQUIPMENT SEE SIG) MIS, Use as directed. Sandra Edmond#[id number], Disp: 1 each, Rfl: 0 Montelukast Sodium 10 MG Oral Tablet (SINGULAIR), Take 1 tablet by mouth nightly, Disp: 30 tablet, Rfl: 11 MVW Complete Formulation D5000 Oral Capsule, Take 2 capsules by mouth daily, Disp: 60 capsule, Rfl: 5 Nebulizers (NEBULIZER COMPRESSOR) [facility], Use as directed. [email or web address] iCabbi Elegance Compressor and accessories. CF IC10:E84.0, MAYTE=99, Disp: 1 each, Rfl: 0 Pancrelipase (Qcg-Sbuh-Jdcw) 96735-[address] UNIT Oral Capsule Delayed Release Particles, Take 5capsules by mouth Three times daily with meals 5 capsules with snacks., Disp: 1050 capsule, Rfl: 5 polyethylene glycol (GLYCOLAX) powder, Take 17 g by mouth daily as needed, Disp: 255 g, Rfl:5 tobramycin, PF, (FLOR) 300 MG/5ML nebulizer solution, INHALE 1 VIAL VIA NEBULIZER BY MOUTH TWICE DAILY. USE ONLY WHEN SICK. DOES NOT ALTERNATE EVERY MONTH., Disp: 280 mL, Rfl: 5 Current Facility-Administered Medications: albuterol (PROVENTIL HFA;VENTOLIN HFA) inhaler 2 puff, 2 puff, Inhalation, Once, Heath Stapleton MD Review of Systems Constitutional: Positive for malaise/fatigue. Negative for chills, fever and weight loss. HENT: Positive for congestion and sore throat. Respiratory: Positive for cough. Negative for hemoptysis, sputum production, shortness of breath andwheezing. Cardiovascular: Negative for chest pain, palpitations, orthopnea, claudication, leg swelling and PND. Gastrointestinal: Negative for abdominal pain, diarrhea, heartburn, nausea and vomiting. Genitourinary: Negative for dysuria. Musculoskeletal: Negative for myalgias. Neurological: Negative for dizziness. Vitals: 05/29/19 1632 Pulse: 78 Resp: 14 Temp: 36.4 C (97.5 F) SpO2: 98% Physical Exam Vitals signs reviewed. HENT: Nose: Congestion and rhinorrhea present. Mouth/Throat: Mouth: Mucous membranes are moist. Pharynx: No oropharyngeal exudate or posterior oropharyngeal erythema. Eyes: General: No scleral icterus. Neck: Musculoskeletal: No muscular tenderness. Cardiovascular: Rate and Rhythm: Normal rate and regular rhythm. Heart sounds: No murmur. No friction rub. No gallop. Pulmonary: Effort: Pulmonary effort is normal. Breath sounds: No wheezing, rhonchi or rales. Abdominal: General: Abdomen is flat. There is no distension. Tenderness: There is no abdominal tenderness. Musculoskeletal: Right lower leg: No edema. Left lower leg: No edema. Lymphadenopathy: Cervical: No cervical adenopathy. Skin: General: Skin is warm and dry. Coloration: Skin is not jaundiced or pale. Neurological: General: No focal deficit present. Mental Status: He is alert and oriented to person, place, and time. PFTs Today: FEV1/FVC: 83% FEV1: 4.71L 113% (improved by 7%) FVC: 5.64L 109% (improved by 6%) Assessment and Plan: Jimmy was seen today for cystic fibrosis. Diagnoses and all orders for this visit: Cystic fibrosis of the lung - Previously treated for influenza 2 weeks ago with oseltamivir. Chest x-ray did not show consolidation. Viral panel negative. - Encouraged conservative management for now. - No current signs of lower respiratory infection. - Continue CF management as below. 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 Last Exacerbation and treatment: His last exacerbation was in 10/2016. Current Medications: Azithromycin, dornase, trikafta, flonase, pancrealipase. Inhalers / Bronchodilators: Albuterol Supplemental Oxygen / Bipap Use: None Vest Therapy: Yes Pancreatic Insufficiency: Pancrealipase Diabetes Mellitus: Lab Results Component Value Date HGBA1C 5.1 09/28/2017 Nutrition: Body mass index is 30.36 kg/m. Advised to be on high protein / high calorie diet Vitamin D Levels: Lab Results Component Value Date [id number] 18 (L) 09/28/2017 Immunization History Administered Date(s) Administered Influenza Quad IM Pres Free (0.5 mL dose) 05/02/2018 Influenza Quad IM with Pres (0.5 mL dose) 12/31/2014 Influenza Split 01/11/2012, 03/05/2014 Tdap 05/29/2019 Counseling: Discussed the importance of medication compliance. Discussed about chloride channel modulator therapy. Explained the importance of compliance to CF Treatment and monitoring and treatment of complicationsfrom CF which include but just not limited to pancreatic insufficiency, diabetes mellitus, osteoporosis, vitamin D deficiency , recurrent infections / exacerbations, infertility, malnutrition Follow Up Plan: Informed the patient to call if symptoms worsen. Will see the patient back in clinic in 3 months. Patient was seen and assessment and plan was discussed with Dr. Stapleton. Jaylen Bennett MD Pulmonary & Critical Care Medicine Pager: [phone] documented in this encounter Plan of Treatment Name Type Priority Associated Diagnoses Date/Time Spirometry + pre & post PFT Routine Cystic fibrosis of 05/29/2019 4:33 PM bronchodilator test the lung EST (albuterol or xopenex) Cystic Sputum Culture Microbiology Routine Cystic fibrosis of 05/29/2019 4 :58 PM the lung EST AFB culture Microbiology Routine Cystic fibrosis of 05/29/2019 4:58 PM the lung EST Health Maintenance Due Date Last Done Comments MMR Vaccines (1 of 1 - 1986 Standard series) Varicella Vaccines (1 of 2 1986 - 2-dose childhood series) Pneumococcal Vaccine: 1991 Pediatrics (0 to 5 Years) and At-Risk Patients (6 to 64 Years) (1 of 1 - PPSV23) DTaP,Tdap,and Td Vaccines 01/17/1992 (1 - Tdap) HIV Screening 1998 Influenza Vaccine 12/27/2018 05/02/2018, 12/31/2014, 03/05/2014, Additional history exists Pneumococcal Vaccine: 65+ 2050 Years (1 of [...] encounter Procedures Procedure Name Priority Date/Time Associated Comments Diagnosis RESPIRATORY PANEL STAT 05/29/2019 4:39 Cystic fibrosis of Results for this PM EST the lung procedure are in the results section. SPIROMETRY + PRE & POST Routine 05/29/2019 4:33 Cystic fibrosis of BRONCHODILATOR TEST PM EST the lung (ALBUTEROL OR XOPENEX) documented in this encounter Results XR Chest Frontal and Lateral (05/29/2019 4:51 PM EST) Specimen Narrative Performed At PROCEDURE INFORMATION: [facility] Exam: XR Chest, 2 Views Exam date and time: 05/29/2019 4:46 PM Age: 34 years old Clinical indication: Cystic fibrosis with pulmonary manifestations; Other: Post flu follow up TECHNIQUE: Imaging protocol: XR of the chest Views: 2 views. COMPARISON: CR XR CHEST FRONTAL AND LATERAL [id number] 03/31/2016 2:40 PM FINDINGS: Lungs: Unremarkable. No consolidation. Pleural space: Unremarkable. No pleural effusion. No pneumothorax. Heart/Mediastinum: Unremarkable. No cardiomegaly. Bones/joints: Unremarkable. IMPRESSION: No acute findings. No significant change. THIS DOCUMENT HAS BEEN ELECTRONICALLY SIGNED BY GABO TRONCOSO MD Procedure Note Interface, Received Via [employer] - 05/29/2019 5:55 PM EST PROCEDURE INFORMATION: Exam: XR Chest, 2 Views Exam date and time: 05/29/2019 4:46 PM Age: 34 years old Clinical indication: Cystic fibrosis with pulmonary manifestations; Other: Post flu follow up TECHNIQUE: Imaging protocol: XR of the chest Views: 2 views. COMPARISON: CR XR CHEST FRONTAL AND LATERAL [id number] 03/31/2016 2:40 PM FINDINGS: Lungs: Unremarkable. No consolidation. Pleural space: Unremarkable. No pleural effusion. No pneumothorax. Heart/Mediastinum: Unremarkable. No cardiomegaly. Bones/joints: Unremarkable. IMPRESSION: No acute findings. No significant change. THIS DOCUMENT HAS BEEN ELECTRONICALLY SIGNED BY GABO TRONCOSO MD Performing Organization Address City/State/Zipcode Phone Number [facility] [address] [place] [address] Respiratory Panel (05/29/2019 4:39 PM EST) Special Request None [facility] Culture/Results Polymerase chain reaction is NEGATIVE for Influenza A H1, H3 and 2009 H1 viruses, Influenza B virus, Respiratory syncytial virus, Human metapneumovirus, Parainfluenza virus 1, 2, 3 and 4, Adenovirus, Rh [facility] inovirus/Enterovirus, Coronavirus HKU1, NL63, OC43, [facility] and 229E, Bordetella pertussis, Mycoplasma pneumoniae and Chlamydia pneumoniae. Pathology This assay does not detect novel Coronavirus (SARS-CoV, SARS-CoV-2, MERS-CoV) . Specimen Nasopharyngeal Swab Performing Organization Address City/State/Zipcode Phone Number [facility] [address] [place] [address] [facility] [address] [place] [address] Pathology documented in this encounter Visit Diagnoses Diagnosis Cystic fibrosis of the lung - Primary Cystic fibrosis with pulmonary manifestations Need for Tdap vaccination Need for prophylactic vaccination with combined yvgpkogcal-mirbner-racthricn ( DTP) vaccine documented in this encounter
--- OUTSIDE RECORDS SUMMARY | 2019-05-31 23:26 | XMS REPORT | Summary of Care ---
:[address] [facility] Address [address] [place] [address] Care Team Providers Name Role Phone Pcp, No Primary Care Provider Unavailable Encounter Details Date Type Department Care Team Description 05/29/2019 Hospital Encounter [facility] Clinical CF (cystic fibrosis) Pathology at [address] [address] Allergies Active Allergy Reactions Severity Noted Date [...] each 0 04/03/2016 Active (DURABLE MEDICAL [place] #[id number] EQUIPMENT SEE SIG) MISC polyethylene glycol Take [...] 5 capsules 1050 capsule 5 03/14/2019 Active (Iqg-Ncal-Gdvm) by mouth Three [id number] UNIT times daily with Oral Capsule Delayed meals 5 capsules Release with snacks. 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 MVW Complete Take 2 capsules 60 capsule 5 03/14/2019 Active Formulation D5000 by mouth daily Oral CapsuleIndications: Cystic fibrosis with pulmonary manifestations Azithromycin 250 MG Take 1 tablet by 30 tablet 5 03/14/2019 Active Oral Tablet mouth daily (ZITHROMAX)Indicatio [...] evening kitIndications: Cystic fibrosis with pulmonary manifestations Gtiubxin-Rommpcc-Kef Take 2 tablets by 84 each 03/14/2019 [...] filedocumented in this encounter Plan of Treatment Name Type Priority Associated Diagnoses Date/Time Vitamin E Lab Routine CF (cystic fibrosis) 05/29/2019 4:20 PM EST Vitamin A Lab Routine CF (cystic fibrosis) 05/29/2019 4:20 PM EST Name Type Priority Associated Diagnoses Order Schedule Vitamin E Lab Timed CF (cystic fibrosis) As Needed for 1 Occurrences starting 05/29/2019 until 05/29/2019 Vitamin A Lab Timed CF (cystic fibrosis) As Needed for 1 Occurrences starting 05/29/2019 until 05/29/2019 Health Maintenance Due Date Last Done Comments [...] Procedure Name Priority Date/Time Associated Comments Diagnosis PARTIAL THROMBOPLASTIN Routine 05/29/2019 4:20 CF (cystic Results for this TIME (PTT) PM EST fibrosis) procedure are in the results section. TOTAL FE BINDING Routine 05/29/2019 4:20 CF (cystic Results for this CAPACITY PM EST fibrosis) procedure are in the results section. VITAMIN D 25 HYDROXY, Routine 05/29/2019 4:20 CF (cystic Results for this TOTAL PM EST fibrosis) procedure are in the results section. PROTIME INR Routine 05/29/2019 4:20 CF (cystic Results for this PM EST fibrosis) procedure are in the results section. CBC AND DIFFERENTIAL Routine 05/29/2019 4:20 CF (cystic Results for this PM EST fibrosis) procedure are in the results section. MAGNESIUM LEVEL Routine 05/29/2019 4:20 CF (cystic Results for this PM EST fibrosis) procedure are in the results section. HEMOGLOBIN A1C Routine 05/29/2019 4:20 CF (cystic Results for this PM EST fibrosis) procedure are in the results section. GAMMA GT Routine 05/29/2019 4:20 CF (cystic Results for this PM EST fibrosis) procedure are in the results section. IGE Routine 05/29/2019 4:20 CF (cystic Results for this PM EST fibrosis) procedure are in the results section. BILIRUBIN, DIRECT Routine 05/29/2019 4:20 Results for this PM EST procedure are in the results section. LIPID PANEL Routine 05/29/2019 4:20 CF (cystic Results for this PM EST fibrosis) procedure are in the results section. COMPREHENSIVE METABOLIC Routine 05/29/2019 4:20 CF (cystic Results for this PANEL PM EST fibrosis) procedure are in the results section. documented in this encounter Results Bilirubin, direct (05/29/2019 4:20 PM EST) Bilirubin, Direct 0.2 <0.3 mg/dL [facility] CLINICAL PATHOLOGY Specimen Plasma Performing Organization Address City/State/Zipcode Phone Number [facility] PATHOLOG[facility] [address] [place] [address] [phone] CBC and differential (05/29/2019 4:20 PM EST) White Blood Cell 5.1 4 - 10 [facility] 10*3/uL [facility] Clin Pathology Red Blood Cell 5.08 4.6 - 6.1 [facility] 10*6/uL [facility] Pathology Hemoglobin 15.2 13.5 - 18 [facility] g/dL [facility] Clin Pathology Hematocrit 44.5 41 - 53 % [facility] Clin Pathology Mean Cell Volume 87.7 80 - 96 fL [facility] Clin Pathology Mean Cell Hemoglobin 30.0 27 - 33 pg [facility] Pathology Mean Cell Hgb Conc 34.2 32.0 - 36.0 [facility] g/dL [facility] Clin Pathology Red Cell Dist Width 13.1 11.5 - 14.5 % [facility] Clin Pathology Platelet Count 268 150 - 400 [facility] 10*3/uL [facility] Clin Pathology Differential Type Automated Diff [facility] Pathology Neutrophil 57 % [facility] Pathology Lymphocyte 29 % [facility] Pathology Monocyte 10 % [facility] Pathology Eosinophil 3 % [facility] Pathology Basophil 1 % [facility] Pathology Abs Neutrophil 2.90 1.8 - 7.0 [facility] 10*3/uL [facility] Pathology Abs Lymphocyte 1.46 1.2 - 4.0 [facility] 10*3/uL [facility] Pathology Abs Monocyte 0.52 0 - 0.8 [facility] 10*3/uL [facility] Pathology Abs Eosinophil 0.14 0 - 0.5 [facility] 10*3/uL [facility] Pathology Abs Basophil 0.05 0 - 0.2 [facility] 10*3/uL [facility] Pathology Nucleated Red Blood 0 0 - 0 [facility] Cells /100{WBCs} [facility] Pathology Specimen EDTA Whole Blood Performing Organization Address [facility] [address] Phone Number [facility] [address] [place] [address] [phone] [facility] Univ Clin [address] [place] [address] Pathology Comprehensive metabolic panel (05/29/2019 4:20 PM EST) Albumin 4.7 3.5 - 5.2 g/dL [facility] Bilirubin, Total 0.7 <1.2 mg/dL [facility] Calcium 9.2 8.6 - 10.0 mg/dL [facility] Chloride 104 98 - 107 mmol/L [facility] Creatinine 1.03 0.70 - 1.20 [facility] mg/dL CLINICAL PATHOLOGY Glucose 90 70 - 140 mg/dL [facility] Alkaline Phosphatase 106 40 - 129 U/L [facility] Potassium 4.0 3.4 - 5.1 mmol/L [facility] Total Protein 7.4 6.4 - 8.3 g/dL [facility] Sodium 142 136 - 145 mmol/L [facility] AST/SGO 51 (H) <40 U/L [facility] Blood Urea Nitrogen 17 6 - 20 mg/dL [facility] Osmolality, Jose 294 275 - 300 [facility] mosm/kg CLINICAL PATHOLOGY BUN/Cre Ratio 16 [facility] Bicarbonate 26 22 - 29 mmol/L [facility] ALT/SGP 87 (H) <41 U/L [facility] Anion Gap 12 8 - 15 mmol/L [facility] A/G Ratio 1.7 [facility] GFR Non >90 >60 [facility] Welsh 2009 CDK-EPI mL/min/1.73m2 CLINICAL PATHOLOGY GFR >90 >60 [facility] 2009 CKD-EPI mL/min/1.73m2 CLINICAL PATHOLOGY Specimen Plasma Performing Organization Address [facility] [address] Phone Number [facility] [address] [place] [address] Gamma GT (05/29/2019 4:20 PM EST) Gamma Glutamyl Trans 56 8 - 61 U/L [facility] Specimen Plasma Performing Organization Address [facility] [address] Phone Number [facility] CLINICAL PATHOLOGY [address] [place] [address] Hemoglobin A1c (05/29/2019 4:20 PM EST) Hemoglobin A1C 5.4 4.0 - 6.0 % [facility] Comment: CLINICAL PATHOLOGY (NOTE) <5.7% Average risk of diabetes(ADA) 5.7-6.4% Increased risk of diabetes(ADA) >/= 6.5% Diagnostic for diabetes(ADA) Estimated Avg 108 <126 mg/dL [facility] Glucose CLINICAL PATHOLOGY Specimen Whole Blood Performing Organization Address [facility] Phone Number [facility] [address] [place] [address] IgE (05/29/2019 4:20 PM EST) IgE, Serum 12 <100 [IU]/mL [facility] CLINICAL PATHOLOGY Specimen Plasma Performing Organization Address [facility] Phone Number [facility] [address] [place] [address] [phone] Iron and TIBC (05/29/2019 4:20 PM EST) Iron 135 59 - 158 ug/dl [facility] CL[facility]ICAL PATH[facility] Transferrin Serum 302 200 - 360 mg/dL [facility] Total Fe Bind Cap 419 228 - 428 ug/dl [facility] CLINICAL PATHOLOG[facility] % Fe Saturation 32.0 20 - 55 % [facility] CLINICAL PATHOLOG[facility] Specimen Plasma Performing Organization Address [facility] Phone Number [facility] CL[facility]ICAL PATH[facility] [address] [place] [address] Lipid panel (05/29/2019 4:20 PM EST) Cholesterol 128 <200 mg/dL [facility] Triglyceride 249 (H) <150 mg/dL [facility] HDL Cholesterol 37 (L) >40 mg/dL [facility] LDL Cholesterol 41 <100 mg/dL [facility] VLDL Cholesterol 50 (H) 16 - 42 mg/dl [facility] Non HDL Cholesterol 91 <130 mg/dL [facility] CLINICAL PATHOLOG[facility] Specimen Plasma Performing Organization Address [facility] Phone Number [facility] [address] [place] [address] Magnesium (05/29/2019 4:20 PM EST) Magnesium 2.1 1.6 - 2.6 mg/dL [facility] Specimen Plasma Performing Organization Address [facility] Phone Number [facility] [address] [place] [address] [phone] Partial Thromboplastin Time (PTT) (05/29/2019 4:20 PM EST) PTT Patient (PAT) 28.9 24.0 - 34.0 s [facility] Clin Pathology Specimen Plasma Performing Organization Address [facility] Phone Number [facility] [address] [place] [address] [phone] [facility] Univ Clin [address] [place] [address] Pathology Protime-INR (05/29/2019 4:20 PM EST) PT Patient 13.3 12.5 - 14.9 [facility] s Univ Clin Pathology Int'l Normalized 0.98Comment: Routine [facility] Ratio intensity oral Univ Clin anticoagulation INR is Pathology typically 2.0-3.0. Target INR must be clinically individualized. Specimen Plasma Performing Organization Address [facility] Phone Number [facility] [address] [place] [address] [phone] [facility] [address] [place] [address] Pathology Vitamin D 25 hydroxy (05/29/2019 4:20 PM EST) Vitamin D 25 Hydroxy, 34 >30 ng/mL [facility] TOTAL PATHOLOGY Specimen Serum Performing Organization Address [facility] Phone Number [facility] [address] [place] [address] [phone] documented in this encounter Visit Diagnoses Diagnosis CF (cystic fibrosis) Cystic fibrosis without mention of meconium ileus documented in this encounter
--- NOTE | 2019-05-31 23:48 | ED ---
Abdominal Pain/Male - HPI Summary HPI Summary: 34-year-old male with no significant past medical history presents to the emergency department today complaining of 10 out of 10 right flank pain which began approximately 1-1/2 hours ago. Patient states he was getting ready for bed when he had a sudden onset sharp right flank pain. Patient has not taken any medication prior to arrival. Patient has associated nausea and pain with urination. Patient states he's never had a kidney stone in the past. Patient denies past family history of kidney stones. Patient denies testicular pain. Patient states prior to this onset of pain he felt well and denies fever, chest pain, abdominal pain, rash, vomiting, diarrhea. - History of Current Complaint Chief Complaint: EDFlankPain Stated Complaint: KIDNEY STONES PER PT Time Seen by Provider: 05/31/19 23:33 Hx Obtained From: Patient Onset/Duration: Sudden Onset Timing: Constant Severity Initially: Moderate Severity Currently: Moderate Pain Intensity: 1 Pain Scale Used: 0-10 Numeric Location: Flank Radiates: Yes Radiates to: Back, Flank Character: Sharp, Cramping Associated Signs And Symptoms: Positive: Back Pain, Urinary Symptoms - Allergies/Home Medications Allergies/Adverse Reactions: Allergies Allergy/AdvReac Type Severity Reaction Status Date / Time cefaclor [From [facility]] Allergy Rash Verified 06/01/19 00:06 PUMPKIN SEEDS Allergy Severe Hives Uncoded 06/01/19 00:06 Home Medications: Home Medications Albuterol HFA INHALER* [Ventolin HFA Inhaler*] 1 puff INH Q6HR 01/05/12 [ History Confirmed 06/01/19] Dornase Alessandro [Pulmozyme] 1 neb INH BID PRN 01/05/12 [History Confirmed 06/01/19] Lipase/Protease/Amylase [Sherman Avelar 6,000 Units Capsule] 2 cap PO SEE INSTRUCTIONS 10/20/16 [History Confirmed 06/01/19] Multivit-Min/Ferrous Fumarate [Multivitamin Liquid] 2 tab PO DAILY 10/20/16 [ History Confirmed 06/01/19] Albuterol 2.5MG/3ML (0.083%)* [Ventolin 2.5 MG/3 ML NEB.CONSTANZA*] 2.5 mg INH Q4H PRN 04/23/17 [History Confirmed 06/01/19] Azithromycin TAB* [Zithromax TAB (Z-MIKE) 250 mg #6 tabs] 250 mg PO DAILY [History Confirmed 06/01/19] Elexacaftor/Tezacaftor/Ivacaft [Trikafta 100/50/75 mg-150 mg] 1 tab PO QPM 05/17 [History Confirmed 06/01/19] Elexacaftor/Tezacaftor/Ivacaft [Trikafta 100/50/75 mg-150 mg] 2 tab PO QAM 05/17 [History Confirmed 06/01/19] Ondansetron ODT TAB* [Zofran Odt TAB*] 4 mg PO Q6H PRN #12 tab.odt 05/17/19 [Rx Confirmed 06/01/19] Ondansetron TAB* [Zofran 4 MG Tab*] 4 mg PO Q6H PRN #12 tab 06/01/19 [Rx] Tamsulosin CAP* [Flomax CAP*] 0.4 mg PO DAILY #5 cap 06/01/19 [Rx] oxyCODONE/Acetamin 5/325 MG* [Percocet 5/325 TAB*] 1 tab PO Q6H PRN #12 tab MDD 4 06/01/19 [Rx] PMH/Surg Hx/FS Hx/Imm Hx Endocrine/Hematology History: Denies: Hx Diabetes, Hx Thyroid Disease Cardiovascular History: Denies: Hx Hypertension Respiratory History: Reports: Other Respiratory Problems/Disorders - pt has cysticfibrosis Denies: Hx Asthma, Hx Chronic Obstructive Pulmonary Disease (COPD) GI History: Denies: Hx Ulcer Infectious Disease History: No Infectious Disease History: Denies: Hx Clostridium Difficile, Hx Hepatitis, Hx Human Immunodeficiency Virus (HIV), Hx of Known/Suspected MRSA, Hx Shingles, Hx Tuberculosis, Hx Known/ Suspected VRE, Hx Known/Suspected VRSA, History Other Infectious Disease, Traveled Outside the [place] in Last 30 Days - Family History Known Family History: Positive: Hypertension Family History: Colon Cancer, brast cancer, - Social History Alcohol Use: None Substance Use Type: Reports: None Smoking Status (MU): Never Smoked Tobacco Review of Systems Constitutional: Negative Eyes: Negative ENT: Negative Cardiovascular: Negative Respiratory: Negative Gastrointestinal: Negative Positive: flank pain Skin: Negative Neurological/Mental Status: Negative Psychological: Normal All Other Systems Reviewed And Are Negative: Yes Physical Exam - Summary Physical Exam Summary: Patient is in no acute distress. Patient has pain with palpation of the right abdomen. Negative CVA tenderness. Triage Information Reviewed: Yes Vital Signs On Initial Exam: Initial Vitals Temp Pulse Resp BP Pulse Ox 97.5 F 85 20 150/92 98 05/31/19 23:19 05/31/19 23:19 05/31/19 23:19 05/31/19 23:19 05/31/19 23:19 Vital Signs Reviewed: Yes Appearance: Positive: Well-Appearing, No Pain Distress, Well-Nourished Skin: Positive: Warm, Skin Color Reflects Adequate Perfusion Eyes: Positive: EOMI, JULIANA ENT: Positive: Hearing grossly normal Respiratory/Lung Sounds: Positive: Clear to Auscultation, Breath Sounds Present Cardiovascular: Positive: RRR, S1, S2 Abdomen Description: Positive: No Organomegaly, Soft. Negative: CVA Tenderness (R), CVA Tenderness (L), Distended, Guarding, McBurney's Point Tenderness Bowel Sounds: Positive: Present Musculoskeletal: Positive: Strength/ROM Intact Neurological: Positive: Sensory/Motor Intact, Alert, Oriented to Person Place, Time, Normal Gait, Facial Symmetry, Speech Normal Psychiatric: Positive: Normal, Affect/Mood Appropriate AVPU Assessment: Alert Procedures - Sedation Patient Received Moderate/Deep Sedation with Procedure: No Diagnostics - Vital Signs Vital Signs Temp Pulse Resp BP Pulse Ox 05/31/19 23:19 97.5 F 85 20 150/92 98 - Laboratory Result Diagrams: 05/31/19 23:43 05/31/19 23:43 Lab Statement: Any lab studies that have been ordered have been reviewed, and results considered in the medical decision making process. Abdominal Pain Male Course/Dx - Course Course Of Treatment: Patient was evaluated in the emergency department today for flank pain. Vitals noted and stable. Laboratory studies returned showing no evidence of leukocytosis, anemia or significant electrical disturbance. Urinalysis has 3+ blood with no evidence of UTI. CT of the abdomen and pelvis shows a 3 mm nonobstructing right kidney stone in the UVJ with left nephrolithiasis. Patient given IV fluids, Toradol, Zofran in the emergency department. Patient prescription for tamsulosin, Percocet and discharged to outpatient follow-up with urology. Stone will likely pass on its own. No evidence of pyonephritis. - Diagnoses Differential Diagnosis/HQI/PQRI: Appendicitis, Bowel Obstruction, Gall Bladder Disease - No tracheal, Testicular Torsion, Ureteral Stone, Urinary Tract Infection Provider Diagnoses: Kidney stone Discharge ED - Sign-Out/Discharge Documenting (check all that apply): Patient Departure - Discharge Plan Condition: Stable Disposition: HOME Prescriptions: Ondansetron TAB* [Zofran 4 MG Tab*] 4 mg PO Q6H PRN #12 tab PRN Reason: Nausea oxyCODONE/Acetamin 5/325 MG* [Percocet 5/325 TAB*] 1 tab PO Q6H PRN #12 tab MDD 4 PRN Reason: Pain - Severe Tamsulosin CAP* [Flomax CAP*] 0.4 mg PO DAILY #5 cap Patient Education Materials: Kidney Stones (ED) Referrals: No Primary Care Phys,NOPCP [Primary Care Provider] - Patrice Marin MD [Medical Doctor] - 3 Days - Billing Disposition and Condition Condition: STABLE Disposition: Home
[2019-05-31] MEDS ORDERED: Ketorolac INJ* 30 MG/ML 1 ML VIAL IV ONE (23:50)
[2019-05-31] MEDS ORDERED: NS 0.9% 1000 ML** 1,000 ML IV ONE (23:50)
[2019-05-31] MEDS ORDERED: Ondansetron INJ* 2 MG/ML VIAL IV ONE (23:50)
[2019-05-31] MEDS ORDERED: Ketorolac INJ* 30 MG/ML 1 ML VIAL ONE (23:51)
[2019-05-31] MEDS ORDERED: Ondansetron INJ* 2 MG/ML VIAL ONE (23:51)
[2019-05-31 23:55] LABS: Urine Appearance Cloudy; Urine Bilirubin Negative (Negative); Urine Blood 3+ (Negative); Urine Color Yellow; Urine Glucose Negative (Negative); Urine Ketones Negative (Negative); Urine Nitrite Negative (Negative); Urine Protein Negative (Negative); Urine Urobilinogen Negative (Negative)
[2019-05-31 23:58] LABS: ABS Basophils 0.1 10^3/ul (0-0.2); ABS Eosinophils 0.1 10^3/ul (0-0.6); ABS Lymphocytes 1.6 10^3/ul (1.0-4.8); ABS Monocytes 0.5 10^3/ul (0-0.8); ABS Neutrophils 4.4 10^3/ul (1.5-7.7); Eosinophil % 1.5 %; Hematocrit 44 % (42-52); Hemoglobin 15.2 g/dL (14.0-18.0); Lymphocyte % 24.1 %; Mean Corpuscular HGB Conc 35 g/dL (31-36); Mean Corpuscular Hemoglobin 30 pg (27-31); Mean Corpuscular Volume 87 fL (80-94); Mean Platelet Volume 9.2 fL (7.4-10.4); Platelet Count 264 10^3/uL (150-450); Red Blood Count 5.02 10^6 /uL (4.18-5.48); Red Cell Distribution Width 13 % (10-15); White Blood Count 6.7 10^3/uL (3.5-10.8)
[2019-05-31 23:58] LABS: Urine Bacteria Absent (Absent); Urine Red Blood Cell 3+(>10/hpf) (Absent); Urine White Blood Cell Absent (Absent)
[2019-06-01 00:21] LABS: ALT 173 U/L (7-52); AST 84 U/L (13-39); Albumin 4.6 g/dL (3.2-5.2); Albumin/Globulin Ratio 1.6 (1-3); Alkaline Phosphatase 118 U/L (34-104); Anion Gap 6 mmol/L (2-11); BUN/Creatinine Ratio 20.9 (8-20); Blood Urea Nitrogen 23 mg/dL (6-24); C Reactive Protein 1.15 mg/L (<8.01); CO2 Carbon Dioxide 29 mmol/L (22-32); Chloride 104 mmol/L (101-111); EGFR African American 92.7 (>60); EGFR Non-African American 76.6 (>60); Globulin 2.9 g/dL (2-4); Glucose 123 mg/dL (70-100); Potassium 3.9 mmol/L (3.5-5.0); Sodium 139 mmol/L (135-145); Total Protein 7.5 g/dL (6.4-8.9)
[2019-06-01 00:59] VITALS: BP 113/87
[2019-06-01] MEDS ORDERED: oxyCODONE/Acetamin 5/325 MG* TAB ONE (01:45)
== END 2019-06-01 04:49 | disposition home or self-care (01) ==
LOC: ED 23:18
DX: N20.0 Calculus of kidney (principal); M54.9 Dorsalgia, unspecified; R10.84 Generalized abdominal pain; Z79.899 Other long term (current) drug therapy
CPT/HCPCS: 36415; 74176; 80053; 81003; 81015; 83690; 85025; 86140; 96361; 96374; 96375; 99283; A9270-GY; J1885; J2405

== ENCOUNTER 2020-07-27 10:57 | Observation (INO) ==
[2020-07-27] MEDS ORDERED: Morphine 4 MG/ML VIAL (1 ml) IV ONE (11:16)
[2020-07-27] MEDS ORDERED: Ondansetron 4 mg VIAL 2 MG/ML 2 ml VIAL IV ONE ×2 (11:35→13:09)
[2020-07-27] MEDS: NS 0.9% 1000 ml BAG 1,000 ML IV ONE ×2 (11:43→13:19)
[2020-07-27 11:52] LABS: ABS Basophils 0.1 10^3/ul (0-0.2); ABS Lymphocytes 0.7 10^3/ul (1.0-4.8); ABS Monocytes 1.3 10^3/ul (0-0.8); ABS Neutrophils 12.8 10^3/ul (1.5-7.7); Eosinophil % 0.1 %; Hematocrit 43 % (42-52); Hemoglobin 14.8 g/dL (14.0-18.0); Lymphocyte % 4.9 %; Mean Corpuscular HGB Conc 35 g/dL (31-36); Mean Corpuscular Hemoglobin 31 pg (27-31); Mean Corpuscular Volume 88 fL (80-94); Mean Platelet Volume 9.6 fL (7.4-10.4); Platelet Count 210 10^3/uL (150-450); Red Blood Count 4.87 10^6 /uL (4.18-5.48); Red Cell Distribution Width 13 % (10-15); White Blood Count 14.9 10^3/uL (3.5-10.8)
[2020-07-27 12:12] LABS: Albumin 4.3 g/dL (3.2-5.2); Albumin/Globulin Ratio 1.4 (1-3); Calcium 9.4 mg/dL (8.6-10.3); EGFR African American 62.5 (>60); EGFR Non-African American 51.7 (>60); Potassium 3.6 mmol/L (3.5-5.0); Total Bilirubin 1.5 mg/dL (0.2-1.0); Total Protein 7.3 g/dL (6.4-8.9)
[2020-07-27 12:28] LABS: Urine Appearance Clear; Urine Bilirubin Negative (Negative); Urine Blood 2+ (Negative); Urine Color Yellow; Urine Glucose Negative (Negative); Urine Ketones Negative (Negative); Urine Nitrite Negative (Negative); Urine Protein Negative (Negative); Urine Specific Gravity 1.003 (1.002-1.030); Urine Urobilinogen Negative (Negative)
[2020-07-27 12:29] LABS: Urine Bacteria Absent (Absent); Urine Red Blood Cell Trace(0-2/hpf) (Absent); Urine Squamous Epithelial Cell Present (Absent); Urine White Blood Cell Trace(0-5/hpf) (Absent)
[2020-07-27] MEDS ORDERED: HYDROmorphone 1 MG/1 ML SYRINGE IV ONE (13:09)
[2020-07-27] MEDS ORDERED: NS 0.9% 1000 ml BAG 1,000 ML IV ONE (13:39)
[2020-07-27] MEDS ORDERED: Prochlorperazine 5 mg/ml 2 ml VIAL (10 mg) IV PRN (14:14)
[2020-07-27] MEDS ORDERED: Ondansetron 4 mg VIAL 2 MG/ML 2 ml VIAL IV PRN (14:14)
[2020-07-27] MEDS ORDERED: Levofloxacin 500 MG IVPREMIX 500 MG/100 ML BAG IV ONE (14:17)
[2020-07-27 14:34] LABS: C Reactive Protein 176.8 mg/L (<8.01)
[2020-07-27] MEDS ORDERED: Albuterol HFA INHALER 8 gm MDI INH PRN (14:48)
[2020-07-27] MEDS ORDERED: Albuterol 2.5mg/3 ml (0.083%) NEB.SOLN INH PRN (14:48)
[2020-07-27] MEDS ORDERED: DORNASE ALFA INH PRN (14:48)
[2020-07-27] MEDS ORDERED: PANCRELIPASE 6000 UNIT PO SCH (16:30)
[2020-07-27] MEDS: NS 0.9% 1000 ml BAG 1,000 ML IV SCH (16:36)
[2020-07-27] MEDS: HYDROmorphone 1 MG/1 ML SYRINGE IV SLOW PU PRN ×2 (17:01→22:29)
[2020-07-28] MEDS ORDERED: HYDROmorphone 0.5 MG/0.5 ML SYRINGE IV SLOW PU PRN ×2 (00:12→14:06)
[2020-07-28] MEDS: IVACAFTOR 150 MG PO SCH ×2 (00:44→20:23)
[2020-07-28] MEDS: NS 0.9% 1000 ml BAG 1,000 ML IV SCH ×3 (03:02→20:20)
[2020-07-28 04:55] LABS: Hematocrit 39 % (42-52); Hemoglobin 13.5 g/dL (14.0-18.0); Mean Corpuscular HGB Conc 35 g/dL (31-36); Mean Corpuscular Hemoglobin 31 pg (27-31); Mean Corpuscular Volume 88 fL (80-94); Mean Platelet Volume 9.4 fL (7.4-10.4); Platelet Count 171 10^3/uL (150-450); Red Blood Count 4.39 10^6 /uL (4.18-5.48); Red Cell Distribution Width 13 % (10-15)
[2020-07-28 05:11] LABS: Calcium 8.4 mg/dL (8.6-10.3); EGFR Non-African American 70.2 (>60); Potassium 3.8 mmol/L (3.5-5.0)
[2020-07-28] MEDS: Pancrelipase 24,000 units (NF) PO SCH ×3 (09:36→18:04)
[2020-07-28] MEDS: [UNRECOGNIZED DRUG - OTHER] PO SCH (09:53)
[2020-07-28] MEDS: oxyCODONE/Acetamin 5/325 mg TAB PO PRN (12:24)
[2020-07-28] MEDS ORDERED: HYDROmorphone 1 MG/1 ML SYRINGE IV SLOW PU ONE (14:45)
[2020-07-28] MEDS ORDERED: HYDROmorphone 1 MG/1 ML SYRINGE IV SLOW PU PRN (17:16)
[2020-07-29] MEDS: oxyCODONE/Acetamin 5/325 mg TAB PO PRN (00:25)
[2020-07-29] MEDS: NS 0.9% 1000 ml BAG 1,000 ML IV SCH ×3 (01:10→11:57)
[2020-07-29 05:56] LABS: C Reactive Protein 106.68 mg/L (<8.01); Calcium 8.4 mg/dL (8.6-10.3); EGFR Non-African American 61.2 (>60); Potassium 3.7 mmol/L (3.5-5.0)
[2020-07-29] MEDS: Pancrelipase 24,000 units (NF) PO SCH ×2 (11:18→12:52)
[2020-07-29] MEDS: [UNRECOGNIZED DRUG - OTHER] PO SCH ×2 (11:18→12:52)
[2020-07-29 12:17] VITALS: BP 141/85
== END 2020-07-29 14:50 | disposition home or self-care (01) ==
LOC: ED 10:57 → MED 10:57
PROVIDERS: ADMIT Hospitalist; ATTEND Hospitalist